=== PATIENT | female | born 1970 | race Caucasian/White ===

== ENCOUNTER 2021-12-28 17:43 | Emergency (ER) | payer OTHER, SELFPAY ==
[2021-12-28 17:52] VITALS: BP 120/83; PULSE 76; RESP 16; TEMP 36.6; O2SAT 100
--- NOTE | 2021-12-28 18:43 | ED.EYEPROB ---
HPI - Eye Problem General Chief complaint: Eye Problems Stated complaint: Eye Problem Time Seen by Provider: 12/28/21 18:43 Source: patient Mode of arrival: ambulatory Limitations: no limitations History of Present Illness HPI Narrative: 51-year-old female presented for complaint of left eye pain after swiping a wash cloth over the eye 2 days ago. She states the pain has worsened over the last 2 days, pain is minimal but states it feels like something is in her eye. She denies vision changes, headache or dizziness. She has a history of the LASEK procedure. chief complaint: eye pain Related Data Home Medications Medication Instructions Recorded Confirmed atomoxetine 60 mg PO DAILY 12/28/21 12/28/21 semaglutide [Ozempic] 1 mg SUBCUT WEEKLY 12/28/21 12/28/21 sertraline 100 mg PO DAILY 12/28/21 12/28/21 Allergies Allergy/AdvReac Type Severity Reaction Status Date / Time phenobarbital Allergy Unknown Hives / Verified 12/28/21 18:29 Red Face Review of Systems Review of Systems: CONSTITUTIONAL: Denies body aches, fever, chills EYES:Endorses redness and pain to left eye, FB sensation Denies visual changes, photophobia ENT: Denies rhinorrhea, congestion, sore throat, or otalgia. CARDIOVASCULAR: Denies chest pain, palpitations RESPIRATORY: Denies cough or dyspnea. GASTROINTESTINAL: Denies abdominal pain, nausea, vomiting, or diarrhea. SKIN: Denies rash, itching, or wounds. MUSCULOSKELETAL: Denies back pain, joint pain, or myalgia. NEUROLOGIC: Denies headache, numbness, tingling, or weakness. PSYCH: Denies depression or anxiety. All systems reviewed & are unremarkable except as noted in HPI and below [facility] Comments At time of signature, I have reviewed and agree with nursing past medical, surgical, social and family history unless otherwise noted. Please see nursing chart for further information. There is no relevant family history pertinent to the presenting complaint Exam Narrative: GENERAL: Well-appearing. HEAD: Normocephalic, atraumatic. EYES: left conjunctival injection,no eye lid swelling or lesions. PERRLA EOMI. Lid eversion showed no FB ENT: Mucous membranes pink and moist. No rhinorrhea. TMs normal bilaterally. Throat normal. Uvula midline. NECK: Normal AROM. Supple. No lymphadenopathy. CHEST: No respiratory distress. Clear to auscultation. HEART: Regular rate and rhythm. No murmur appreciated. Normal peripheral pulses. ABDOMEN: Soft, nontender, nondistended MUSCULOSKELETAL: No bony tenderness. EXTREMITIES: Normal range of motion. SKIN: Warm, dry, no rash. Normal skin turgor. NEURO: No focal deficits. Alert and oriented x3. Steady gait PSYCH: Normal affect. Course Course Emergency Course: Patient is aware of diagnosis, understands and agrees to treatment plan. Anticipatory guidance given. Patient agrees to follow-up as directed and is aware of reasons to seek care at the emergency department. Portions of this record may have been created with voice recognition software Level of Care: Express Care Visit Vital Signs Vital signs: Vital Signs Temperature 97.8 F 12/28/21 17:52 Pulse Rate 76 12/28/21 17:52 Respiratory Rate 16 12/28/21 17:52 Blood Pressure 120/83 12/28/21 17:52 Pulse Oximetry 100 12/28/21 17:52 Temperature 97.8 F 12/28/21 17:52 Pulse Rate 76 12/28/21 17:52 Respiratory Rate 16 12/28/21 17:52 Blood Pressure 120/83 12/28/21 17:52 Pulse Oximetry 100 12/28/21 17:52 Procedures FB Removal Eye Foreign Body #1: Foreign Body Removal Date: 12/28/21 Location: eye (L) Topical anesthetic used: tetracaine Evidence of corneal penetration: No Technique: irrigation Procedure performed under: other (webster) Patient tolerated procedure: well and no complications Foreign Body Removal Narrative: No FB identified, no corneal abrasion noted MDM - Eye Problem MDM Narrative Medical decision nilay
== END 2021-12-28 19:07 | disposition home or self-care (01) ==
PROVIDERS: Emergency Provider Nurse Practitioner Family; PCP Internal Medicine
DX: H10.9 Unspecified conjunctivitis (principal)
CPT/HCPCS: 99213; A9270; G0463

== ENCOUNTER 2022-04-17 17:03 | Emergency (ER) | payer OTHER, SELFPAY ==
[2022-04-17 17:06] VITALS: BP 121/81; PULSE 72; RESP 16; TEMP 36.4; O2SAT 98
--- NOTE | 2022-04-17 17:07 | ED.SKABFB ---
HPI - Skin/Abscess/Foreign Bdy General Chief complaint: Skin/Abscess/Foreign Body Stated complaint: Rash Related Data Home Medications Medication Instructions Recorded Confirmed atomoxetine 60 mg capsule 60 mg PO DAILY 12/28/21 04/17/22 semaglutide 1 mg/dose (4 mg/3 mL) 1 mg subcut WEEKLY 12/28/21 04/17/22 subcutaneous pen injector (Ozempic) sertraline 100 mg tablet 100 mg PO DAILY 12/28/21 04/17/22 cetirizine 10 mg tablet 10 mg PO DAILY 04/17/22 04/17/22 estradiol 0.1 mg/24 hr weekly 1 patch transdermal 2XW 04/17/22 04/17/22 transdermal patch progesterone micronized 100 mg 200 mg PO HS 04/17/22 04/17/22 capsule Allergies Allergy/AdvReac Type Severity Reaction Status Date / Time phenobarbital Allergy Unknown Hives / Verified 04/17/22 17:17 Red Face Discharge Plan Discharge Clinical Impression: Dermatitis Patient Disposition: Home, Self-Care Condition: Stable Instructions: Antibiotic Form, Dermatitis (ED) Additional Instructions: Apply triamcinolone cream as directed moisturize area twice daily using Lubriderm, Cetaphil, or Aquaphor lotion Follow-up with your PCP in 3 to 5 days if symptoms persist or sooner if they worsen May take Benadryl 25 to 50 mg every 6 hours as needed for itching. Prescriptions: New triamcinolone acetonide 0.1 % cream 1 applic topical BID 7 Days Qty: 30 0RF No Action cetirizine 10 mg Tablet 10 mg PO DAILY estradiol 0.1 mg/24 hr Patch Weekly 1 patch TRANSDERMAL 2XW progesterone micronized 100 mg Capsule 200 mg PO HS sertraline 100 mg tablet 100 mg PO DAILY atomoxetine 60 mg capsule 60 mg PO DAILY Ozempic 1 mg/dose (4 mg/3 mL) pen injector 1 mg SUBCUT WEEKLY Follow-up/Referrals: Barbara,MD Cholo [Primary Care Provider] - Time of Disposition: 17:34
[2022-04-17 17:20] VITALS: BP 121/81; PULSE 72; RESP 16; TEMP 36.4; O2SAT 98
--- NOTE | 2022-04-17 18:03 | ED.SKABFB ---
HPI - Skin/Abscess/Foreign Bdy General Chief complaint: Skin/Abscess/Foreign Body Stated complaint: Rash Time Seen by Provider: 04/17/22 17:25 Source: patient Mode of arrival: ambulatory Limitations: no limitations History of Present Illness HPI narrative: Ms. Hagen is a 51-year-old female patient presenting to the clinic today with complaints of rash to her left volar aspect of the elbow. She reports that this rash has been there approximately 3 to 4 days. It is itchy and scaly. She has tried some fungal cream without relief. She is also applied some hydrocortisone cream to this area. Related Data Home Medications Medication Instructions Recorded Confirmed atomoxetine 60 mg capsule 60 mg PO DAILY 12/28/21 04/17/22 semaglutide 1 mg/dose (4 mg/3 mL) 1 mg subcut WEEKLY 12/28/21 04/17/22 subcutaneous pen injector (Ozempic) sertraline 100 mg tablet 100 mg PO DAILY 12/28/21 04/17/22 cetirizine 10 mg tablet 10 mg PO DAILY 04/17/22 04/17/22 estradiol 0.1 mg/24 hr weekly 1 patch transdermal 2XW 04/17/22 04/17/22 transdermal patch progesterone micronized 100 mg 200 mg PO HS 04/17/22 04/17/22 capsule Allergies Allergy/AdvReac Type Severity Reaction Status Date / Time phenobarbital Allergy Unknown Hives / Verified 04/17/22 17:17 Red Face Review of Systems Review of Systems: Pertinent positives per HPI. Patient denies any fever, chills, headache, visual changes, dizziness, cough, runny nose, sore throat, shortness of breath, chest pain, palpitations, nausea, vomiting, diarrhea, constipation, abdominal pain, or any urinary issues. [facility] Comments At the time of my signature, I reviewed and agree with the nursing past medical, surgical, social, and family history. There is no relevant family history pertinent to the patient complaint. Exam Narrative: General: Well-developed, well nourished, in no apparent distress Head: Normocephalic, atraumatic. Cardio: Regular rate and rhythm, s1 and s2 normal, no murmur appreciated. Resp: Clear to auscultation bilaterally, no rhonchi, rales, wheezing or rubs. Integumentary: [place], warm, and dry, intact without lesion,red scaly itchy rash to the flexor surface of the left elbow Course Course Emergency Course: Portions of this record may have been created with voice recognition software. Level of Care: Express Care Visit Vital Signs Vital signs: Vital Signs Temperature 36.4 C 04/17/22 17:06 Pulse Rate 72 04/17/22 17:06 Respiratory Rate 16 04/17/22 17:06 Blood Pressure 121/81 04/17/22 17:06 Pulse Oximetry 98 04/17/22 17:06 Oxygen Delivery Room Air 04/17/22 17:06 Temperature 36.4 C 04/17/22 17:20 Pulse Rate 72 04/17/22 17:20 Respiratory Rate 16 04/17/22 17:20 Blood Pressure 121/81 04/17/22 17:20 Pulse Oximetry 98 04/17/22 17:20 Oxygen Delivery Room Air 04/17/22 17:20 Vital signs reviewed MDM - Skin/Abscess/Foreign Bdy MDM Narrative Medical decision making narrative: At the time of visit patient is resting comfortably on the exam table. I suspect the patient has dermatitis eczema to her left elbow. Supportive measures were discussed with the patient she voiced understanding of discharge instructions. I will place her on a prescription for some triamcinolone cream. Differential Diagnosis Differential diagnosis: Likely cellulitis, eczema and contact dermatitis Discharge Plan Discharge Clinical Impression: Dermatitis Patient Disposition: Home, Self-Care Condition: Stable Instructions: Antibiotic Form, Dermatitis (ED) Additional Instructions: Apply triamcinolone cream as directed moisturize area twice daily using Lubriderm, Cetaphil, or Aquaphor lotion Follow-up with your PCP in 3 to 5 days if symptoms persist or sooner if they worsen May take Benadryl 25 to 50 mg every 6 hours as needed for itching. Prescriptions: New triamcinolone acetonide 0.1 % cream 1 applic topical BID 7 Days Qty
== END 2022-04-17 17:36 | disposition home or self-care (01) ==
PROVIDERS: Emergency Provider Nurse Practitioner Family; PCP Internal Medicine
DX: L30.9 Dermatitis, unspecified (principal); K21.9 Gastro-esophageal reflux disease without esophagitis; F41.9 Anxiety disorder, unspecified; F32.A Depression, unspecified; Z86.16 Personal history of COVID-19
CPT/HCPCS: 99213; G0463

== ENCOUNTER 2022-05-12 18:01 | Emergency (ER) | payer OTHER, SELFPAY ==
[2022-05-12 18:09] VITALS: BP 132/84; PULSE 70; RESP 16; TEMP 37.3; O2SAT 97
--- NOTE | 2022-05-12 19:03 | ED.URI ---
HPI - URI/Sore Throat General Chief Complaint: Upper Respiratory Infection Stated Complaint: cough,sore throat Time Seen by Provider: 05/12/22 19:03 Source: patient, RN notes reviewed and old records reviewed Mode of arrival: ambulatory Limitations: no limitations History of Present Illness HPI Narrative: 51-year-old female [facility] complaints of cough, congestion, sore throat, and ear pain for the past 4 days with symptoms not resolving. Patient reports that she has taken Mucinex, DayQuil, NyQuil and Delsym for her symptoms with no resolution. Patient reports she has not noticed a fever, MD elicited complaint: cough, sore throat, rhinorrhea and nasal congestion Onset (ago): day(s) (4) Pain scale (0-10): 7 Treatments prior to arrival: other (Mucinex Delsym cough syrup DayQuil and NyQuil) Related Data Home Medications Medication Instructions Recorded Confirmed atomoxetine 60 mg capsule 60 mg PO DAILY 12/28/21 05/12/22 sertraline 100 mg tablet 100 mg PO DAILY 12/28/21 05/12/22 pantoprazole 40 mg tablet,delayed 40 mg PO QAM 05/12/22 05/12/22 release (Protonix) tirzepatide 12.5 mg/0.5 mL 12.5 mg subcut WEEKLY 05/12/22 05/12/22 subcutaneous pen injector (Mounjaro) Allergies Allergy/AdvReac Type Severity Reaction Status Date / Time phenobarbital Allergy Unknown Hives / Verified 05/12/22 18:19 Red Face Review of Systems Review of Systems: CONSTITUTIONAL: Denies fever, chills, or sweats. EYES: Denies visual changes, redness, or discharge. ENT: Positive rhinorrhea, congestion, sore throat, or otalgia. CARDIOVASCULAR: Denies chest pain, palpitations, or edema. RESPIRATORY: Positive cough no dyspnea. GASTROINTESTINAL: Denies abdominal pain, nausea, vomiting, or diarrhea. GENITOURINARY: Denies dysuria or hematuria. SKIN: Denies rash or itching. MUSCULOSKELETAL: Denies back pain, joint pain, or myalgia. NEUROLOGIC: Denies headache, numbness, or weakness. PSYCHIATRIC: Positive history of anxiety or depression All systems reviewed & are unremarkable except as noted in HPI and below [facility] Past Medical History Medical History (Updated 05/16/22 @ 20:49 by Dunia Chapa NP) ADHD (attention deficit hyperactivity disorder) Anxiety and depression H/O nephrolithotomy with removal of calculi Surgical History Surgical History (Updated 05/16/22 @ 20:48 by Dunia Chapa NP) H/O tubal ligation History of endometrial ablation Social History Social History (Updated 05/16/22 @ 20:47 by Dunia Chapa NP) Smoking status: Former smoker Additional smoking assessment comments: Quit 2010 Alcohol intake: unknown Substance use type: does not use Living arrangements: with family Gender identity (if verbalized by the patient): Female Comments At time of signature, agree with nursing past medical, surgical, social and family history. There is no relevant family history pertinent to the presenting complaint Exam Narrative: GENERAL: Well-appearing, well-nourished, and in no acute distress. HEAD: Normocephalic, atraumatic. EYES: PERRLA and EOMI. ENT: Nares red with clear rhinorrhea, no epistaxis. Mucous membranes moist.TM normal with dull light reflex, throat with some redness not lesions or exudates or tonsil swelling NECK: Supple. no lymphadenopathy CHEST: Scattered wheezes to auscultation. No respiratory distress.SAO2 97% on room air HEART: Regular rate and rhythm. No murmur heard. Normal peripheral pulses. ABDOMEN: Soft, nontender, nondistended, normal active bowel sounds. EXTREMITIES: Normal range of motion. No edema. SKIN: Warm, dry, no rash. NEURO: No focal deficits. Alert and oriented x3. Course Course Level of Care: Express Care Visit Vital Signs Vital signs: Vital Signs Temperature 37.3 C 05/12/22 18:09 Pulse Rate 70 05/12/22 18:09 Respiratory Rate 16 05/12/22 18:09 Blood Pressure 132/84 05/12/22 18:09 Pulse Oximetry 97 05/12/22 18:09 Oxygen D
== END 2022-05-12 19:20 | disposition home or self-care (01) ==
PROVIDERS: Emergency Provider Registered Nurse; PCP Internal Medicine
DX: J40 Bronchitis, not specified as acute or chronic (principal); J02.9 Acute pharyngitis, unspecified; Z87.891 Personal history of nicotine dependence; F90.9 Attention-deficit hyperactivity disorder, unspecified type; F41.9 Anxiety disorder, unspecified; F32.A Depression, unspecified
CPT/HCPCS: 87081; 87880; 99213; G0463

== ENCOUNTER 2022-08-08 17:12 | Emergency (ER) | payer OTHER, SELFPAY ==
[2022-08-08 17:34] VITALS: BP 106/77; PULSE 73; RESP 18; TEMP 37; O2SAT 99
[2022-08-08 17:35] VITALS: BP 106/77; PULSE 73; RESP 18; TEMP 37; O2SAT 99
--- NOTE | 2022-08-08 18:21 | ED.URI ---
HPI - URI/Sore Throat General Chief Complaint: Upper Respiratory Infection Stated Complaint: Congestion/Headache Time Seen by Provider: 08/08/22 18:21 Source: patient and RN notes reviewed Mode of arrival: ambulatory Limitations: no limitations History of Present Illness HPI Narrative: 51-year-old female presenting for complaint of sinus pressure, congestion, and cough with a hoarse voice over the last 3 days. She took a negative COVID test at home 2 days ago. She denies shortness of breath, wheezing, nausea vomiting, diarrhea, fever chills. She is taking [id number] Mucinex for symptoms. MD elicited complaint: cough Related Data Home Medications Medication Instructions Recorded Confirmed atomoxetine 60 mg capsule 60 mg PO DAILY 12/28/21 08/08/22 sertraline 100 mg tablet 100 mg PO DAILY 12/28/21 08/08/22 pantoprazole 40 mg tablet,delayed 40 mg PO QAM 05/12/22 08/08/22 release (Protonix) tirzepatide 12.5 mg/0.5 mL 12.5 mg subcut WEEKLY 05/12/22 08/08/22 subcutaneous pen injector (Mounjaro) Allergies Allergy/AdvReac Type Severity Reaction Status Date / Time phenobarbital Allergy Unknown Hives / Verified 08/08/22 17:33 Red Face Review of Systems Review of Systems: ROS per HPI [facility] Past Medical History Medical History ADHD (attention deficit hyperactivity disorder) Anxiety and depression H/O nephrolithotomy with removal of calculi Surgical History Surgical History H/O tubal ligation History of endometrial ablation Social History Social History Smoking status: Former smoker Additional smoking assessment comments: Quit 2011 Alcohol intake: unknown Substance use type: does not use Gender identity (if verbalized by the patient): Female Exam Narrative: GENERAL: well-appearing EYES: PERRLA, conjunctivae clear ENT: Mucous membranes moist. TMs pearly fernandez with dull light reflex bilaterally; no tragal tenderness. Oropharynx erythematous without lesions or exudate NECK: Supple. No lymphadenopathy CHEST: Clear to auscultation, breath sounds equal. No wheezing, rhonchi, rales, or stridor. No respiratory distress, speaks in full sentences. HEART: Regular rate and rhythm. No murmur heard. SKIN: Warm, dry, no rash. NEURO: Alert and oriented x3. PSYCH: Normal mood and affect Course Course Emergency Course: Patient is aware of diagnosis, understands and agrees to treatment plan. Anticipatory guidance given. Patient agrees to follow-up as directed and is aware of reasons to seek care at the emergency department. Portions of this record may have been created with voice recognition software Level of Care: Express Care Visit Vital Signs Vital signs: Vital Signs Temperature 98.6 F 08/08/22 17:34 Pulse Rate 73 08/08/22 17:34 Respiratory Rate 18 08/08/22 17:34 Blood Pressure 106/77 08/08/22 17:34 Pulse Oximetry 99 08/08/22 17:34 Oxygen Delivery Room Air 08/08/22 17:34 Temperature 98.6 F 08/08/22 17:35 Pulse Rate 73 08/08/22 17:35 Respiratory Rate 18 08/08/22 17:35 Blood Pressure 106/77 08/08/22 17:35 Pulse Oximetry 99 08/08/22 17:35 Oxygen Delivery Room Air 08/08/22 17:35 reviewed MDM - URI/Sore Throat MDM Narrative Medical decision making narrative: Advised supportive measures and signs/symptoms to go to the ER. Pt is appropriate for outpt treatment and f/u. Differential Diagnosis Differential diagnosis: Likely upper respiratory infection, sinusitis and viral infection Discharge Plan Discharge Clinical Impression: Upper respiratory infection Patient Disposition: Home, Self-Care Condition: Stable Instructions: Upper Respiratory Infection (ED) Additional Instructions: Recommend Flonase spray and Zyrtec (or Claritin/Svitlana) Tylenol or Motrin flores
== END 2022-08-08 18:34 | disposition home or self-care (01) ==
PROVIDERS: Emergency Provider Nurse Practitioner Family; PCP Internal Medicine
DX: J06.9 Acute upper respiratory infection, unspecified (principal); F41.9 Anxiety disorder, unspecified; F32.A Depression, unspecified; F90.9 Attention-deficit hyperactivity disorder, unspecified type; Z87.891 Personal history of nicotine dependence
CPT/HCPCS: 99211; G0463

== ENCOUNTER 2022-11-20 15:32 | Emergency (ER) | payer OTHER, SELFPAY ==
[2022-11-20 15:47] VITALS: BP 140/75; PULSE 82; RESP 16; TEMP 36.6; O2SAT 99
--- NOTE | 2022-11-20 16:52 | ED.GENADULT ---
HPI - General Adult General Chief complaint: Upper Respiratory Infection Stated complaint: Sinus Congestion/Headache Source: patient Mode of arrival: ambulatory Limitations: no limitations History of Present Illness HPI narrative: Patient presents for evaluation of sinus symptoms for last 11 days. Symptoms include sinus congestion, mucopurulent discharge from the nares, otalgia, difficulty breathing and subjective fever. She developed a cough today. She works for [employer] and they recently went to an optional mask policy. She is not aware of any recent specific sick contacts. No nausea, vomiting or diarrhea. She tried taking several OTC agents for her symptoms. Some have provided temporary relief. She does not smoke. She has been sleeping with head of bed elevated to assist with her breathing. Related Data Home Medications Medication Instructions Recorded Confirmed atomoxetine 60 mg capsule 60 mg PO DAILY 12/28/21 11/20/22 sertraline 100 mg tablet 100 mg PO DAILY 12/28/21 11/20/22 pantoprazole 40 mg tablet,delayed 40 mg PO QAM 05/12/22 11/20/22 release (Protonix) tirzepatide 12.5 mg/0.5 mL 12.5 mg subcut WEEKLY 05/12/22 11/20/22 subcutaneous pen injector (Mounjaro) Allergies Allergy/AdvReac Type Severity Reaction Status Date / Time phenobarbital Allergy Unknown Hives / Verified 11/20/22 15:51 Red Face Review of Systems Review of Systems: CONSTITUTIONAL: Denies fever, chills, or sweats. EYES: Denies visual changes, redness, or discharge. ENT: Reports sinus congestion, mucopurulent discharge from nares and bilateral otalgia. Denies sore throat CARDIOVASCULAR: Denies chest pain, palpitations, or edema. RESPIRATORY: Reports productive cough. Denies SOB GASTROINTESTINAL: Denies abdominal pain, nausea, vomiting, or diarrhea. GENITOURINARY: Denies dysuria or hematuria. SKIN: Denies rash or itching. MUSCULOSKELETAL: Denies back pain, joint pain, or myalgia. NEUROLOGIC: Denies headache, numbness, dizziness, or weakness. PSYCHIATRIC: Denies anxiety or depression. [facility] Past Medical History Medical History ADHD (attention deficit hyperactivity disorder) Anxiety and depression H/O nephrolithotomy with removal of calculi Surgical History Surgical History H/O tubal ligation History of endometrial ablation Family History Family History Mother Family history non-contributory Social History Social History Smoking status: Former smoker Additional smoking assessment comments: Quit 2010 Alcohol intake: unknown Substance use type: does not use Living arrangements: with family Gender identity (if verbalized by the patient): Female Exam Narrative: GENERAL: Well-appearing, well-nourished, and in no acute distress. HEAD: Normocephalic, atraumatic. EYES: PERRLA and EOMI. ENT: There is thick yellow drainage in bilateral nares. Mucous membranes moist. Bilateral maxillary and frontal sinus tenderness. Bilateral TMs pearly fernandez nonbulging NECK: Supple. No adenopathy or masses. No carotid bruits or JVD CHEST: Clear to auscultation. No respiratory distress. No wheezes rales or rhonchi HEART: Regular rate and rhythm. No murmur heard. Normal peripheral pulses. ABDOMEN: Soft, nontender, nondistended, normal active bowel sounds. EXTREMITIES: Normal range of motion. No edema. SKIN: Warm, dry, no rash. NEURO: No focal deficits. Alert and oriented x3. PSYCH: Normal mood and affect. Course Course Emergency Course: This is a 51-year-old female who presented for evaluation of sinus symptoms refractory to multiple medications. She meets criteria for ABRS based on duration of time in which she has been symptomatic and quality of her discharge. Will treat with Augmenti
== END 2022-11-20 16:56 | disposition home or self-care (01) ==
PROVIDERS: Emergency Provider Nurse Practitioner; PCP Internal Medicine
DX: J32.9 Chronic sinusitis, unspecified (principal); Z87.891 Personal history of nicotine dependence
CPT/HCPCS: 99213; G0463

== ENCOUNTER 2024-03-12 13:43 | Emergency (ER) | payer OTHER, SELFPAY ==
[2024-03-12 13:52] VITALS: BP 153/83; PULSE 73; RESP 16; TEMP 36.5; O2SAT 100
--- NOTE | 2024-03-12 14:02 | ED.URI ---
HPI - URI/Sore Throat General Chief Complaint: Upper Respiratory Infection Stated Complaint: nose/ears/diarrhea History of Present Illness HPI Narrative: patient is a 53-year-old female, past medical history significant for asthma, ADHD anxiety presents to [facility] with approximate 24 hour history of URI symptoms, including clear rhinorrhea, burning in the nasal passages, scratchy itchy throat and a slight cough. She denies associated fevers or chills. 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 She is taking wimv-jou-awpmeiv cold medications without much relief prompting her visit. She has no associated chest pain and shortness of breath, orthopnea, calf pain or swelling, nausea vomiting or urinary symptoms. She does report loose stool today. She denies recent travel, she is not . Related Data Home Medications Medication Instructions Recorded Confirmed atomoxetine 60 mg capsule 60 mg PO DAILY 12/28/21 11/20/22 sertraline 100 mg tablet 100 mg PO DAILY 12/28/21 11/20/22 pantoprazole 40 mg tablet,delayed 40 mg PO QAM 05/12/22 11/20/22 release (Protonix) Protonix 03/12/24 semaglutide 2 mg/dose (8 mg/3 mL) mg subcut 03/12/24 subcutaneous pen injector (Ozempic) Allergies Allergy/AdvReac Type Severity Reaction Status Date / Time phenobarbital Allergy Unknown Hives / Verified 11/20/22 15:51 Red Face Review of Systems ENT: Comments: Refer to HPI Respiratory: Comments: refer to HPI [facility] Past Medical History Medical History ADHD (attention deficit hyperactivity disorder) Anxiety and depression H/O nephrolithotomy with removal of calculi Surgical History Surgical History H/O tubal ligation History of endometrial ablation Family History Family History Mother Family history non-contributory Social History Social History Smoking status: Former smoker Additional smoking assessment comments: Quit 2010 Alcohol intake: unknown Substance use type: does not use Living arrangements: with family Gender identity (if verbalized by the patient): Female Exam Const: General: healthy appearing, no acute distress and alert Nutritional Appearance: obese Orientation/consciousness: patient oriented x3 Limitations: no limitations HENMT: Head: normal to inspection Ears: external ears normal and TM abnormal retracted bilateral and other ( serous pattern bilaterally, no perforation, no erythema) Eyes: Conjunctivae: conjunctivae normal Pupils: Equal, round and reactive pupils present EOM: EOMs intact bilaterally Neck: Neck: normal visual inspection, no lymphadenopathy and no meningeal signs Resp: Effort & Inspection: normal respiratory effort Auscultation: clear to auscultation bilaterally Cardio: Rate: regular rate Rhythm: regular rhythm GI: GI Palp: Yes Soft to palpation, No Tenderness to palpation present (GI), No Guarding due to palpation present (GI), No Rigid due to palpation, No Hernia present, No Palpable mass present and No Rebound tenderness present Skin: General skin exam: normal color Rashes: no rashes Wounds: no wounds Neuro: General: patient oriented x3, moves all extremities, no meningeal signs, no focal motor deficits and CN's II-XI intact bilaterally Cranial nerves: Yes Nystagmus not present Speech: normal speech Gait exam (Neuro): Normal gait present Extrem: General: normal to inspection and no clubbing, cyanosis or edema Course Course Emergency Course: plan to treat with short steroid course, cough suppressant, continued miea-aep-pzyeivn antihistamines as directed. Close follow-up with her PCP in 3-5 days if her symptoms are not starting to improve. Sooner if she develops high fever or with any concer
== END 2024-03-12 14:11 | disposition home or self-care (01) ==
PROVIDERS: Emergency Provider Nurse Practitioner Family; PCP Internal Medicine
DX: J06.9 Acute upper respiratory infection, unspecified (principal); Z87.891 Personal history of nicotine dependence; F90.9 Attention-deficit hyperactivity disorder, unspecified type; F41.9 Anxiety disorder, unspecified; F32.A Depression, unspecified
CPT/HCPCS: 99213; G0463

== ENCOUNTER 2025-03-29 17:05 | Emergency (ER) | payer OTHER, SELFPAY ==
--- NOTE | 2025-03-29 17:07 | ED_ITS ---
HPI - Ear Problem General Chief complaint: Ear Stated complaint: ear pain Time Seen by Provider: 03/29/25 17:18 Source: patient and RN notes reviewed Mode of arrival: ambulatory Limitations: no limitations History of Present Illness HPI Narrative: 54-year-old female presents concern for left ear pain for 4 days. She reports over the summer she had the ear infection that was resistant to antibiotics, she followed up with an ENT by that point the ear infection was healed. She has not had any problems until now. She denies fever, upper respiratory symptoms. She denies drainage from the ear MD Complaint: ear pain Related Data Home Medications ?Medication ?Instructions ?Recorded ?Confirmed ?Last Taken ?Type sertraline 100 mg tablet 100 mg PO DAILY 12/28/21 11/20/22 Unknown History pantoprazole 40 mg tablet,delayed 40 mg PO QAM 05/12/22 11/20/22 Unknown History release (Protonix) Protonix 03/12/24 Unknown History estradiol 0.1 mg/24 hr semiweekly 03/29/25 Unknown History transdermal patch lisdexamfetamine 40 mg capsule mg 03/29/25 Unknown History tirzepatide 15 mg/0.5 mL mg subcut 03/29/25 Unknown History subcutaneous pen injector (Mounjaro) Allergies Allergy/AdvReac Type Severity Reaction Status Date / Time Milk Containing Products Allergy Unknown Unknown Verified 03/29/25 17:20 (Dairy) phenobarbital Allergy Unknown Hives / Verified 03/29/25 17:19 Red Face Review of Systems Review of Systems: CONSTITUTIONAL: Denies malaise, chills, sweats, or fever. EYES: Denies visual changes, redness, or discharge. ENT: Denies rhinorrhea, congestion, sinus pain, and sore throat. Reports left ear pain CARDIOVASCULAR: Denies chest pain, palpitations, or edema. RESPIRATORY: Denies cough. Denies dyspnea. GASTROINTESTINAL: Denies abdominal pain, nausea, vomiting, diarrhea SKIN: Denies rash or itching. MUSCULOSKELETAL: Denies myalgia. NEUROLOGIC: Denies headache. All systems reviewed & are unremarkable except as noted in HPI and below PMFSH Past Medical History Medical History ADHD (attention deficit hyperactivity disorder) Anxiety and depression H/O nephrolithotomy with removal of calculi Surgical History Surgical History H/O tubal ligation History of endometrial ablation Family History Family History Mother Family history non-contributory Social History Social History Smoking status: Former smoker Additional smoking assessment comments: Quit 2010 Alcohol intake: unknown Substance use type: does not use Living arrangements: with family Gender identity (if verbalized by the patient): Female Comments At time of signature, agree with nursing past medical, surgical, social and family history. There is no relevant family history pertinent to the presenting complaint Exam Narrative: GENERAL: Well-appearing, well-nourished, and in no acute distress. HEAD: Normocephalic EYES: PERRLA, conjunctivae clear ENT: Nares clear, turbinates edematous, clear discharge. Mucous membranes moist. TM pearly fernandez with dull light reflex bilaterally; no tragal tenderness, EAC unremarkable. No post or pre-auricular erythema, induration, or warmth noted. Oropharynx not erythematous without lesions. Tonsils not enlarged and without exudate, no drooling, no hoarseness, no trismus, uvula midline. NECK: Supple. No lymphadenopathy CHEST: Clear to auscultation, breath sounds equal. No wheezing, rhonchi, rales, or stridor. No respiratory distress, speaks in full sentences. HEART: Regular rate and rhythm. No murmur heard. SKIN: Warm, dry, no rash. NEURO: Alert and oriented x3. PSYCH: Normal mood and affect Course Course Emergency Course: Patient is aware of diagnosis, understands and agrees to treatment plan. Anticipatory guidance given. Patient agrees to follow-up as directed and is aware of reasons to seek care at the emergency department. Portions of this record may have been created with voice recognition software Level of Care: Express Care Visit Vital Signs Vital signs: Reviewed. Medical Decision Making MDM Narrative Medical decision making narrative: I evaluated this in the [facility]. History is obtained from patient who is an independent historian and physical exam was performed.? Available medical records were reviewed. ? Exam findings and relevant testing show no acute concerns or changes; patient is non-toxic appearing and is in no distress. Differential diagnosis considered: Duran virus, strep pharyngitis, allergic rhinitis, upper respiratory tract infection, sinusitis, rhinosinusitis, nasopharyngitis. viral pharyngitis, otitis media, otitis externa, otitis effusion, pre/post auricular cellulitis, mastoiditis, cerumen impaction, foreign body. Exam findings show no acute concerns or changes; patient is non-toxic appearing and is in no distress. Patient is appropriate for outpatient treatment and follow-up. ? Differential diagnosis and treatment plan were discussed with the patient. Patient agrees with discussion and after shared medical decision making agrees with plan of care. All questions were answered to the patient's satisfaction. Patient is appropriate for outpatient treatment and follow-up. Critical Care Time Critical Care Time Critical Care Time: No Discharge Plan Discharge Clinical Impression: Ear ache Patient Disposition: Home Condition: Stable Instructions: Earache (ED) Additional Instructions: Take pseudoephedrine as directed. Recommend antihistamine such as Benadryl at night time and Zyrtec or Svitlana during the day until symptoms improve Flonase nasal spray, 2 sprays in each nostril once daily until symptoms improve Also, recommend symptomatic treatment includes: rest, fluids, and increase humidity of the air at home. Recommend Acetaminophen as directed on the bottle to reduce fever, pain Please schedule a follow-up visit with your personal physician for further evaluation and treatment within 3-5days. If your symptoms persist, change or worsen significantly before you can contact your personal physician then please, without delay, go to the emergency department for further evaluation. Patient Language: French Prescriptions: New pseudoephedrine HCl [12 Hour Decongestant] 120 mg tablet extended release 120 mg PO Q12H PRN (Reason: nasal congestion) Qty: 20 0RF No Action pantoprazole [Protonix] 40 mg Tablet,Delayed Release (Dr/Ec) 40 mg PO QAM Protonix estradiol 0.1 mg/24 hr patch semiweekly lisdexamfetamine 40 mg capsule Mounjaro 15 mg/0.5 mL pen injector SUBCUT sertraline 100 mg tablet 100 mg PO DAILY Follow-up/Referrals: Araceli,Kwaku Tobar MD [Primary Care Provider] - Time of Disposition: 17:27
--- OUTSIDE RECORDS SUMMARY | 2025-03-29 17:07 | XMS_ITS | Encounter Summary ---
Author Organization [facility] Address [address] [facility] [address] [place] [address] Phone Care Team Providers Care Buyer Grain Name Role Phone Cholo Jimenez MD Primary Care Provider [phone] Neno Corea MD Unavailable [phone] Foster Kwan MD Unavailable [phone] Remberto Ovalles MD Unavailable [phone] Kwaku Charles MD Primary Care Provi daija Kwaku Charles MD Primary Care Provi daija Cholo Jimenez MD Primary Care Provider [phone] Kwaku Charles MD Primary Care Provi daija Encounter Details Date Type Department Care Team (Late st Contact Info) Description 10/19/2017 Orders Only [facility] ProviderVinny MD [address] [place] [address] Social History Tobacco Use Types Packs/Day Years Used Date Smoking Tobacco: Former Cigarettes Q uit: 12/08/2010 Smokeless Tobacco: Former Alcohol Use Standard Drinks/Week Comments No 0 (1 standard drink = 0.6 oz pur e alcohol) Comments Unknown Sex and Gender Information Value Date Recorded Sex Assigned at Not on file Legal Sex Female 7:17 PM [employer] Gender Identity Female 10/30/2023 2:03 AM [employer] Sexual Orientation Straight 08/03/2019 2: 20 PM [employer] documented as of this encounter Plan of Treatment Not on file documented as of this encounter Procedures Procedure Name Priority Date/Time Associated Diagnosis Comments DISCHARGE LABORATORY CUMULATIVE REPORT 10/19/2017 12:00 AM [employer] documented in this encounter Results * DISCHARGE LABORATORY CUMULATIVE REPORT (10/19/2017 12:00 AM [employer]) Narrative 10/19/2017 12:00 AM [employer] Ordered by an unspecified provider. Historical Provider LAB BLOOD ORDERABLES Natasha l Result documented in this encounter Visit Diagnoses Not on filedocumented in this encounter Additional Health Concerns Infection Onset Date Last Indicated Resolved Time COVID: Suspected 06/12/2020 06/12/2020 06/13/2020 2:51 PM CDT Respiratory Infection (JONATHON), contact + droplet Comment:Automatically added due to negative COVID-19 result. 06/13/2020 06/13/2020 06/20/2020 1:3 3 PM CDT COVID: Suspected 08/04/2020 08/04/2020 08/18/2020 3:07 AM [employer] COVID19 08/04/2020 09/01/2020 09/01/2020 8:56 AM [employer] COVID: Recovered 08/15/2020 09/01/2020 2020 3:05 AM CDT COVID: Suspected 11/14/2020 11/14/2020 11/14/2020 10:25 AM CDT COVID: Suspected 02/03/2021 02/03/2021 02/03/2021 9:27 PM CDT COVID: Suspected 06/30/2021 06/30/2021 07/01/2021 6:09 AM CDT COVID: Suspected 09/04/2021 09/04/2021 09/05/2021 10:05 AM [employer] documented as of this encounter Care Teams Buyer Grain Relationship Specialty Start Date End Date Cholo Jimenez MD PCP - General Internal Medicine 10/04/17 07/19/24 Kwaku Charles MD [address] [place] [address] PCP - General Family Practice 07/20/24 09/01/24 Kwaku Charles MD [address] [place] [address] PCP - General Family Practice 09/02/24 09/08/24 Cholo Jimenez MD [address] [facility] [address], [place] [address] PCP - General Internal Medicine 09/09/24 10/19/24 Kwaku Charles MD [address] [facility] [address] [place] [address] PCP - General Family Practice 10/20/24 Neno Corea MD Consulting Physician Gastroenterology 06/17/22 Foster Kwan MD Consulting Physician Interventional Cardiology 06/17/22 [place] [address] [place] [address] Surgeon General Surgery 06/19/22 documented as of this encounter
--- OUTSIDE RECORDS SUMMARY | 2025-03-29 17:07 | XMS_ITS | Clinical Summary ---
Author Organization [facility] Address [address] [place] [address] Phone Care Team Providers Care Pick Up Name Role Phone Provider, None Primary Care Provider Unavailabl e Allergies Active Allergy Reactions Criticality Noted Date Comments Phenobarbital Hives,Rash Medium 05/12/2016 Reaction: Hives, , Medications Ascorbic Acid 1000 MG Tablet Take 1,000 mg by mouth. Active Cholecalciferol 25 mcg Capsule Take 1,000 Units by mouth. Active estradiol (VIVELLE) 0.05 MG/24HR PATCH BIWEEKLY 9 Active pantoprazole (PROTONIX) 40 MG Tablet Delayed Response TAKE ONE TABLET BY MOUTH TWICE A DAY 0 Active phenazopyridine (PYRIDIUM) 100 MG Tablet Take 100 mg by mouth. 0 Active progesterone (PROMETRIUM) 100 MG Capsule Take 100 mg by mouth. 9 Active Semaglutide, 1 MG/DOSE, 2 MG/1.5ML Solution Pen-injector 1 mg by Subcutaneous route. 0 Active sertraline (ZOLOFT) 50 MG Tablet TAKE ONE TABLET BY MOUTH EVERY DAY 0 Active Active Problems No known active problems Social History Tobacco Use Types Packs/Day Years Used Date Smoking Tobacco: Former Cigarettes Smokeless Tobacco: Never Comments No Sex and Gender Information Value Date Recorded Sex Assigned at Not on file Legal Sex Female 8:56 PM CDT Gender Identity Not on file Sexual Orientation Not on file Last Filed Vital Signs Vital Sign Reading Time Taken Comments Blood Pressure 98/78 08/04/2020 3:27 PM PHYSICAL THERAPY ASSISTANT INSTRUCTOR Pulse 78 08/04/2020 3:27 PM PHYSICAL THERAPY ASSISTANT INSTRUCTOR Temperature 37.2 C (98.9 F) 08/04/2020 3:27 PM PHYSICAL THERAPY ASSISTANT INSTRUCTOR Respiratory Rate - - Oxygen Saturation 98% 08/04/2020 3:27 PM PHYSICAL THERAPY ASSISTANT INSTRUCTOR Inhaled Oxygen Concentration - - Weight - - Height - - Body Mass Index - - Plan of Treatment Health Maintenance Due Date Last Done Comments Hepatitis C Virus (HCV) Screening 1970 TdaP Immunization 1970 Hepatitis B Immunization (1 of 3 - 19+ 3-dose series) 12/12/1990 Pap Smear 12/12/1992 Cervical Cancer Screening (CCS) 12/12/2001 HPV/Cotest 12/12/2001 Cologuard 12/12/2016 Colonoscopy 12/12/2016 Colorectal Cancer Screening 12/12/2016 Immunochemical Fecal Occult Blood 12/12/2016 Pneumococcal Immunization (5 0+ years) (1 of 1 - PCV) 12/12/2021 Zoster Immunization (1 of 2) 12/12/2021 SARS-COV-2 Immunization (4 - season) 2024 08/18/2021, 09/19/2020, 08/22/2020 Influenza Immunization (#1) 04/26/202505/27, 06/13/2016 Respiratory Syncytial Virus (RSV) Immunization (Adult) (1 - 1-dose 75+ series) 12/12/2046 Human Papillomavirus (HPV) Immunization Aged Out No longer eligible b ased on patient's age to complete this topic Meningococcal Immunization (ACWY) Aged Out No longer eligible b ased on patient's age to complete this topic Rotavirus Immunization Aged Out No lo nger eligible based on patient's age to complete this topic Care Teams Pick Up Relationship Specialty Start Date End Date Provider, None [place] PCP - General 08/04/20
--- OUTSIDE RECORDS SUMMARY | 2025-03-29 17:08 | XMS_ITS | Clinical Summary ---
Author Organization [facility] Address [address] [place] [address] Care Team Providers Care Loan Servicing Officer Name Role Phone Neno Corea MD Unavailable Foster Kwan MD Unavailable [phone] Remberto Ovalles MD Unavailable Kwaku Charles MD Primary Care Provi daija Allergies Active Allergy Reactions Criticality Noted Date Comments Dairy - All Forms And Ingredients Other (See comments) Low 07/05/2020 EOE, esophagitis Phenobarbital Hives Medium Tree Nuts Shortness of breath High 07/05/2020 Medications progesterone (PROMETRIUM) 100 mg capsule Take 1 capsule (100 mg total) by mouth nightly 9 Active fluticasone furoate-vilante roL (BREO ELLIPTA) 100-25 mcg/dose diskus inhaler Inhale 1 puff daily Rinse mouth with water after use. Do not swallow. 60 each 2 Active cholecalciferol (VITAMIN D-3) 1,000 unit capsule Take 1 capsule (1,000 Units total) by mouth daily 90 capsule 3 Active ascorbic acid (VITAMIN C) 1,000 mg tablet Take 1 tablet (1,000 mg total) by mouth daily 90 tablet 3 Active Nurtec ODT tablet,disinteg rating Take 1 tablet (75 mg total) by mouth daily as needed (headache) 16 tablet 5 4 Active albuterol-budes onide 90-80 mcg/actuation HFA aerosol inhaler Inhale 2 puffs every 6 (six) hours as needed (cough, wheezing and shortness of breath) 10.7 g 11 4 Active rimegepant (NURTEC ODT) tablet,disinteg rating Take 1 tablet (75 mg total) by mouth daily as needed (Take 1 tablet by mouth daily as needed (headache)) 16 tablet [address] (PROTONIX) 40 mg EC tablet Take 1 tablet (40 mg total) by mouth daily as needed (heartburn) 5 Active sertraline (ZOLOFT) 100 mg tablet Take 0.5 tablets (50 mg total) by mouth daily 45 tablet 1 5 05/21/20 25 Active fluticasone propionate (FLONASE) 50 mcg/actuation nasal sprayIndication s:Acute serous otitis media of left ear, recurrence not specified Administer 2 sprays into each nostril daily 1 each 5 Active estradioL (VIVELLE-DOT) 0.1 mg/[address] 1 patch on the skin 2 (two) times a week 24 patch 3 5 02/02/20 26 Active cetirizine (ZyrTEC) 10 mg tablet Take 1 tablet (10 mg total) by mouth daily 90 tablet 5 Active lisdexamfetamin e (VYVANSE) 40 mg capsule Take 1 capsule (40 mg total) by mouth every morning 30 capsule 5 04/09/20 25 Active tirzepatide (Mounjaro) 15 mg/0.5 mL pen injector injectionIndica tions:Class 2 obesity without serious comorbidity with body mass index (BMI) of 39.0 to 39.9 in adult, unspecified obesity type,Prediabete s Inject 0.5 mL (15 mg total) under the skin every 7 days 2 mL 5 5 09/06/19 26 Active tirzepatide (Mounjaro) 15 mg/0.5 mL pen injector injection Inject 0.5 mL (15 mg total) under the skin every 7 days 2 mL 5 5 03/10/20 25 Discontin ued(Reord er) lisdexamfetamin e (VYVANSE) 40 mg capsule Take 1 capsule (40 mg total) by mouth every morning 30 capsule 5 03/10/20 25 Discontin ued(Reord er) Active Problems Problem Noted Date Diagnosed Date Acute mucoid otitis media of left ear 12/24/2024 Assessment & Plan (12/24/2024 8:32 AM CDT): Dysfunction of both eustachian tubes 12/24/2024 Assessment & Plan (12/24/2024 8:32 AM CDT): Vertigo 12/24/2024 Assessment & Plan (12/24/2024 8:32 AM CDT): Screening for colon cancer 10/02/2024 Routine adult health maintenance 07/20/2024 Prediabetes 07/20/2024 Class 2 obesity with body ma ss index (BMI) of 39.0 to 39.9 in adult 07/20/2024 Mild persistent asthma without complication 06/27 Perimenopause 07/20/2024 Migraine 06/15/2021 Assessment & Plan (08/09/2022 4:14 PM PRECISION JIG GRINDER): [facility] Assessment & Plan (08/12/2021 9:58 PM PRECISION JIG GRINDER): Trial of Imitrex. Stress reduction techniques recommended. Call back if no improvement. Right renal stone 06/22/2020 Overview (06/22/2020): Added automatically from request for surgery [id number] IFG (impaired fasting glucose) 10/06/2018 Assessment & Plan (04/02/2024 5:28 PM CDT): Patient should reduce sugar and carbs, increase exercise, maintain proper body weight, and will check an A1c once or twice yearly. Assessment & Plan (12/06/2023 4:21 PM CDT): Patient should reduce sugar and carbs, increase exercise, maintain proper body weight, and will check an A1c once or twice yearly. Assessment & Plan (02/22/2023 3:30 PM CDT): Patient should reduce sugar and carbs, increase exercise, maintain proper body weight, and will check an A1c once or twice yearly. Assessment & Plan (01/06/2022 9:28 PM CDT): Patient should reduce sugar and carbs, increase exercise, maintain proper body weight, and will check an A1c once or twice yearly. Assessment & Plan (11/14/2020 9:28 PM CDT): Patient should reduce sugar and carbs, increase exercise, maintain proper body weight, and will check an A1c once or twice yearly. Assessment & Plan (10/13/2019 5:12 PM PRECISION JIG GRINDER): Patient should reduce sugar and carbs, increase exercise, maintain proper body weight, and will check an A1c once or twice yearly. Continue Ozempic through her classroom technology coach. Assessment & Plan (02/16/2019 7:24 PM CDT): Patient should reduce sugar and carbs, increase exercise, maintain proper body weight, and will check an A1c once or twice yearly. Assessment & Plan (10/06/2018 5:03 PM PRECISION JIG GRINDER): Patient should reduce sugar and carbs, increase exercise, maintain proper body weight, and will check an A1c once or twice yearly. Adult ADHD 08/06/2018 Assessment & Plan (12/06/2023 4:21 PM CDT): Continue Strattera Assessment & Plan (02/22/2023 3:30 PM CDT): Stable on Strattera. Assessment & Plan (08/09/2022 4:14 PM PRECISION JIG GRINDER): Stable on Strattera Assessment & Plan (01/06/2022 9:28 PM CDT): Stable on Strattera. Assessment & Plan (11/14/2020 9:29 PM CDT): Stable on Strattera for now. Assessment & Plan (10/13/2019 5:12 PM PRECISION JIG GRINDER): Well controlled on her Strattera. Assessment & Plan (09/07/2019 10:38 AM PRECISION JIG GRINDER): Increasing Strattera to 16 mg capsules daily. S/Es medication discussed. F/U here for next wellness visit as scheduled re-evaluation. Assessment & Plan (02/16/2019 7:25 PM CDT): Stable on Strattera. Assessment & Plan (10/06/2018 5:02 PM PRECISION JIG GRINDER): Well controlled on Strattera. Assessment & Plan (09/02/2018 1:36 PM PRECISION JIG GRINDER): Improved medication. Continue current dosing of Strattera as previously prescribed, follow-up in 1 month as scheduled Assessment & Plan (08/06/2018 10:28 AM PRECISION JIG GRINDER): Based upon self report scale indicating presence of ADHD on a daily basis, recommending Strattera starting with lower medium dose once daily. Side effects discussed encourage patient take this medication the morning will touch base here in 2 weeks for re-evaluation Anxiety and depression 06/11/2018 Assessment & Plan (04/02/2024 5:28 PM CDT): Increase sertraline to 150 mg daily. Consider adding BuSpar next. Recommended counseling, increase exercise, yoga, meditation. Assessment & Plan (12/06/2023 4:21 PM CDT): Stable on sertraline. Assessment & Plan (02/22/2023 3:30 PM CDT): Stable on sertraline. Assessment & Plan (01/06/2022 9:28 PM CDT): Better controlled on sertraline 100 mg daily. Assessment & Plan (08/12/2021 9:58 PM PRECISION JIG GRINDER): Increase sertraline to 100 mg daily. Counseling and increase exercise recommended. Call back if no improvement. Assessment & Plan (11/14/2020 9:28 PM CDT): Stable on sertraline. Assessment & Plan (10/13/2019 5:12 PM PRECISION JIG GRINDER): Well controlled on sertraline and may wean down if able. Assessment & Plan (09/07/2019 10:38 AM PRECISION JIG GRINDER): Stable on current dosing of Zoloft and BuSpar. Cnt. Medications prior prescribed. Report increased anxiety office if noted with increased Strattera dosing. Assessment & Plan (04/30/2019 9:55 AM CDT): After long discussion with Pt she decides to Cnt. With current dose of Zoloft 50 mg daily, p.r.n. zoloft 0.5 mg daily, and reach out to her HR department to discuss possible intermittent FMLA leave. I did offer her other conservative treatment options for anxiety, such as exercise, meditation, imaging after friends. Further detail in regard to FMLA leave once reaching out to HR. RTC prn or sooner with concerning sx as advised. Assessment & Plan (02/16/2019 7:25 PM CDT): Better controlled on her sertraline. Counseling recommended as well. Assessment & Plan (10/06/2018 5:02 PM PRECISION JIG GRINDER): Hold buspirone. Start sertraline. Discussed side effects and call back if any develop. Call back if no improvement in 1 month for increasing dose. Assessment & Plan (09/02/2018 1:36 PM PRECISION JIG GRINDER): Controlled well considering medication changes with Strattera. She notes less anxiety due to improved concentration. Continue use of BuSpar on a p.r.n. Basis and follow-up with any concern regarding anxiety or depression Assessment & Plan (08/06/2018 10:22 AM PRECISION JIG GRINDER): Tapering off of patient's Lexapro taking half a tablet daily for the next week, half a tablet every other day for the following week and then stopping. Will re- evaluate patient here in office in 2 weeks considering her concerns regarding possible ADHD symptoms conflicting with diagnosis of anxiety. Use of BuSpar, sparingly, was advised but again if it is not anxiety the BuSpar is likely to be assisting in her acute concerns Assessment & Plan (06/11/2018 1:03 PM CDT): Tapering off of Effexor, trial of Lexapro is refer release the work for patient to take as prescribed as instructions were sent over to pharmacy upon prescribing. Side effects discussed. BuSpar p.r.n.. Follow-up in a month and certainly in the interim with any additional questions or concerns. She did make an appointment to follow up with counseling at the hospital in a week I did encourage her to keep this appointment as well. We will touch base in 4 weeks or sooner as needed Obstructive sleep apnea 04/23/2018 Assessment & Plan (04/02/2024 5:28 PM CDT): Patient is compliant with the CPAP machine and gets symptomatic relief. Assessment & Plan (02/22/2023 3:30 PM CDT): Patient is compliant with the CPAP machine and gets symptomatic relief. Assessment & Plan (01/06/2022 9:28 PM CDT): Patient is compliant with the CPAP machine and gets symptomatic relief. Assessment & Plan (11/14/2020 9:28 PM CDT): Patient is compliant with the CPAP machine and gets symptomatic relief. Assessment & Plan (02/17/2019 7:36 PM CDT): She was diagnosed with mild obstructive sleep apnea in October 2017 and currently she is on CPAP therapy. She states that she is compliant with treatment however CPAP compliance/efficiency data is not available for review. Assessment & Plan (10/24/2018 10:06 AM PRECISION JIG GRINDER): She was diagnosed with mild obstructive sleep apnea in October 2017 and currently she is on CPAP therapy. She states that she is compliant with treatment however CPAP compliance/efficiency data is not available for review. Assessment & Plan (04/23/2018 5:00 PM CDT): She was diagnosed with obstructive sleep apnea in October 2017. Currently she is on CPAP therapy. According to the patient she is compliant to treatment and symptoms are well controlled. Thoracic back sprain 01/03/2018 Assessment & Plan (01/03/2018 10:09 AM CDT): With conservative management failed, recommended Medrol dose pack with a 40 mg Depo-Medrol injection given in office today, tizanidine q.h.s., heat stretching were strongly advised along with Voltaren gel which I advised her she can apply twice daily to the specific area of pain. Just to ensure that there is no concern of any dislocated ribs or anything of that nature I did order a rib x-ray and will follow up with her regarding results of testing any for changes in our management Healthcare maintenance 10/04/2017 Assessment & Plan (04/02/2024 5:27 PM CDT): Flu and COVID boosters in the fall. Prevnar 20 completed. Tetanus booster due April 2029. Get 2nd Shingrix dose. Mammogram yearly. Colonoscopy due March 2025. Will see her back in 1 year with fasting lab sooner if needed. Assessment & Plan (12/06/2023 4:20 PM CDT): Check fasting labs before wellness visit in February. Assessment & Plan (02/22/2023 3:31 PM CDT): Fasting labs this week call back for results. Flu shot each May, Shingrix today, new COVID booster when available. Tetanus booster every years. Mammogram due. Colonoscopy due in 2 years. Follow-up the jordan worker as they direct. Will see her back in 1 year for wellness visit fasting lab sooner needed. Assessment & Plan (01/06/2022 9:30 PM CDT): Flu shot each May. Tetanus booster every 10 years. COVID vaccine completed. Mammogram yearly. Follow-up the jordan worker for breast exam and pelvic exam as they direct. Colonoscopy due and ordered. Will see her back in 1 year for physical fasting lab sooner if needed Assessment & Plan (11/14/2020 9:29 PM CDT): Flu shot each May. Tetanus booster every 10 years. COVID vaccine completed. Mammogram yearly. Follow-up the jordan worker for breast exam and pelvic exam as they direct. We will see her back in 1 year for physical and fasting lab sooner if needed. Assessment & Plan (10/13/2019 5:13 PM PRECISION JIG GRINDER): Flu shot each May. Tetanus booster every 10 years. Mammogram yearly. Follow- up with the jordan worker for breast exam and pelvic exam as they direct. Will see her back in 1 year for physical and fasting lab sooner if needed. Assessment & Plan (10/06/2018 5:03 PM PRECISION JIG GRINDER): Flu shot each May. Tetanus booster every 10 years. FIT for colon cancer screening call back for results. Mammogram yearly. Follow-up the jordan worker for breast exam and pelvic exam is a direct. We will see her back in 3 months for follow-up of her multiple medical conditions or sooner if needed. Assessment & Plan (01/12/2018 3:52 PM CDT): Flu shot each May. Tetanus booster every 10 years. Colonoscopy age 51. Mammogram yearly. Follow-up the jordan worker for breast exam and pelvic exam is a direct. We will see her back in 1 year for physical and fasting lab sooner if needed. Will also check fasting labs now should call back for results. Vitamin D deficiency 10/04/2017 Assessment & Plan (04/02/2024 5:27 PM CDT): Continue supplementation check levels yearly. Assessment & Plan (12/06/2023 4:21 PM CDT): Continue supplementation check level before next visit. Assessment & Plan (02/22/2023 3:30 PM CDT): Continue supplementation check level this week back for results. Assessment & Plan (01/06/2022 9:27 PM CDT): Continue current supplementation and check level in 1 year. Assessment & Plan (11/14/2020 9:28 PM CDT): Continue current supplementation and check level in 1 year. Assessment & Plan (10/13/2019 5:11 PM PRECISION JIG GRINDER): Continue current supplementation and check level in 1 year. Assessment & Plan (02/16/2019 7:23 PM CDT): Continue current supplementation and check level in 1 year. Assessment & Plan (10/06/2018 5:02 PM PRECISION JIG GRINDER): Reduce vitamin-D to 1000 units daily and check level in 1 year. Assessment & Plan (01/12/2018 3:49 PM CDT): Continue current supplementation and check level in 1 year. Nocturnal hypoxemia 10/04/2017 Assessment & Plan (01/12/2018 3:49 PM CDT): Check split night sleep study for possibly of sleep apnea considering her excessive daytime fatigue. Gastroesophageal reflux disease 05/24/2016 Assessment & Plan (04/02/2024 5:27 PM CDT): Well controlled on pantoprazole. Assessment & Plan (06/26/2022 2:51 PM CDT): Symptoms well controlled with Protonix daily. Assessment & Plan (11/14/2020 9:28 PM CDT): Well controlled on pantoprazole Assessment & Plan (10/13/2019 5:12 PM PRECISION JIG GRINDER): Try decreasing her PPI to every other day and then discontinue if able. Assessment & Plan (02/16/2019 7:24 PM CDT): Continue current PPI and the patient is aware of the long-term risks posed by chronic PPI usage. Magnesium level will be checked periodically. Calcium supplementation recommended. Assessment & Plan (10/06/2018 5:02 PM PRECISION JIG GRINDER): Continue current PPI and the patient is aware of the long-term risks posed by chronic PPI usage. Magnesium level will be checked periodically. Calcium supplementation recommended. Pure hypercholesterolemia 05/24/2016 Assessment & Plan (04/02/2024 5:28 PM CDT): Low risk for ASCVD and therefore recommend diet exercise. Assessment & Plan (12/06/2023 4:21 PM CDT): Diet exercise discussed and repeat lipid panel before next visit. Assessment & Plan (02/22/2023 3:30 PM CDT): Fasting lipid panel this week back for results. Assessment & Plan (01/06/2022 9:27 PM CDT): Low risk for ASCVD and therefore recommend diet exercise. Assessment & Plan (11/14/2020 9:28 PM CDT): Low risk for ASCVD and therefore recommend diet exercise. Assessment & Plan (10/13/2019 5:11 PM PRECISION JIG GRINDER): Low risk for ASCVD and therefore recommend diet exercise. Osteoarthritis of knee 02/01/2016 Overview (11/30/2016): OA - Osteoarthritis of knee Atopic rhinitis 04/08/2015 Overview (11/30/2016): Allergic rhinitis Assessment & Plan (04/02/2024 5:28 PM CDT): Astelin /Zyrtec as needed. Assessment & Plan (10/13/2019 5:12 PM PRECISION JIG GRINDER): Okay to try holding her Astelin and Zyrtec and restart as needed. Assessment & Plan (10/06/2018 5:01 PM PRECISION JIG GRINDER): Add Astelin nasal spray to her fluticasone and montelukast Assessment & Plan (03/14/2018 2:12 PM CDT): She is on case of allergic rhinitis. She complains of chronic postnasal drip and nasal congestion. She was started on fluticasone nasal spray. Assessment & Plan (01/12/2018 3:48 PM CDT): Continue generic Singulair. 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 Discussed side effects call back if develop. Hypertriglyceridemia 07/10/2022 024 Chest pain 06/15/2022 07/20/2024 Assessment & Plan (08/09/2022 4:15 PM PRECISION JIG GRINDER): Scheduled for stress test and echocardiogram with her cook helper preserves Chest pain, unspecified type 06/14/2022 04/02/2024 Elevated LFTs 06/14/2022 07/20/2024 Overview (06/18/2022): Added automatically from request for surgery [id number] Cholelithiasis with choledocholithiasis 06/14/2022 04/02/2024 Overview (06/18/2022): Added automatically from request for surgery [id number] Assessment & Plan (08/09/2022 4:15 PM PRECISION JIG GRINDER): She has done very well following surgery. Repeat hepatic function panel trending towards normal. Has already followed up with GI and surgery without issues. Repeat hepatic function panel September 2022 and call back if symptoms return. Assessment & Plan (06/26/2022 2:51 PM CDT): S/P ERCP on 06/18/2022 and lap andrew on 06/20/2022. Abdominal pain is slowly improving. Tolerating diet without nausea or vomiting. No fevers. Will order CBC and HFP. She has FU with surgery on 07/12. Mild intermittent asthma wit h acute exacerbation 05/23/2022 04/02/2024 Assessment & Plan (05/23/2022 4:43 PM CDT): HPI: Condition is not at/near goal A&P: Discussed/ordered labs, encouraged healthy, low carbohydrate lifestyle and at least 150min/week of exercise, refer to Dr. Underwood pulmonology breo levaquin 500mg daily x 10 days, no leftovers Recommend daily probiotic to help prevent GI side effects Promethazine syrup at bedtime Tesdanika lester during the day Prediabetes 11/06/2021 04/02/2024 Assessment & Plan (05/23/2022 4:49 PM CDT): A1c ordered today-5.6% great control PCV20 given today Pt had diabetic eye exam at [facility]. We will call to obtain. Assessment & Plan (11/06/2021 5:12 PM CDT): This is a chronic condition which is stable, controlled, at goal. Personally reviewed A1c today- 5.5, at goal less than 7% Personally reviewed blood sugar-118 at goal 80-180 Medication- Continue ozempic 1mg weekly- with symptoms. Discussed decreasing to o.5mg weekly, discussed bariatric surgery- referral made. Monitor blood sugar weekly Encouraged annual eye exam. Monofilament foot exam completed, protective senses intact. Urine microalbumin/creatinine ratio - <30 mg/g currently not on SATINDER/ARB , at goal <30 Personally reviewed labs: BUN- 9, creatinine- 0.70 GFR- 106 Kidney function- normal B/P today- 118/66, currently not on SATINDER/ARB. At Goal blood pressure is <140/90 and as close to 120/80 as possible. Personally reviewed LDL - 90, currently not on statin therapy. at Goal of less than 70 No history of macrovascular disease - CVA, [place]. Vomiting without nausea 02/03/20212 12/2023 Renal calculus, right 07/09/20202023 Overview (07/09/2020): Added automatically from request for surgery [id number] Right flank pain 06/22/2020 04/02/2024 Overview (06/22/2020): Added automatically from request for surgery [id number] Viral gastroenteritis 01/22/20202020 Assessment & Plan (01/22/2020 1:52 PM CDT): Push plenty of fluids. Zofran for nausea. Imodium for diarrhea. Alcorn diet. If she develops high fever or severe abdominal pain or cannot keep fluids down over the weekend consider ER evaluation. Non-seasonal allergic rhinitis due to pollen 9 04/02/2024 Assessment & Plan (02/17/2019 7:35 PM CDT): Symptoms well controlled. We will continue with combination of cetirizine and fluticasone nasal spray. Mild persistent asthma without complication 11/16/2018 11/01/2020 Assessment & Plan (11/16/2018 1:16 PM CDT): We will continue with combination of Breo Ellipta 100 mcg 1 puff once a day and Spiriva Respimat 1.25 mcg 2 puffs once a day. Her inhaler technique was reviewed and correct technique was clearly explained and demonstrated. Class 2 severe obesity due t o excess calories with serious comorbidity and body mass index (BMI) of 37.0 to 37.9 in adult 10/06/2018 Assessment & Plan (05/23/2022 4:46 PM CDT): HPI: Condition is not at/near goal goal BMI <30 A&P: Healthy, high-protein, lower carbohydrate, lower fat lifestyle and exercise for 150min/week recommended Recommend tracking everything you put in your mouth on an yudi like [employer] Lower carb substitutions: [employer] carries a zero net carb bread If you are looking for whole potatoes, like to use in soup or new potato shape/flavor, radishes are a great replacement If you are looking for mashed potatoes, riced cauliflower in the frozen bag section are a great replacement For pasta, try using zucchini noodles, lay them out on a cookie sheet and pat dry with a tea towel to try to remove as much moisture as possible. Heat your pasta sauce on the stove and put the noodles in for 30-45 seconds. If you leave them in much longer they will become mushy [place] and/or coconut flour instead of regular flour For pizza dough, try fathead pizza dough recipe online. To get a crispy crust, bake on one side for 8-12 min, then flip over and bake on the other side for 8-12 min, then put toppings on and bake until the cheese on top of pizza melts chaffles recipe online For ice cream, try the brand Enlightened To replace coffee creamer and make it low carb, use heavy creamer with sugar free [place]ani sweetener For chips, try Whisps or pork rinds For yogurt, try Two Good maltese yogurt Use [employer] for recipe ideas. Type in low carb... Hand Measurements: A fist or cupped hand = 1 cup 1 cup = 1 -2 servings of fruit juice 1 oz. of cold cereal 2 oz. of cooked cereal, rice or pasta 8 oz. of milk or yogurt A thumb = 1 oz. of cheese Consuming low-fat cheese helps you meet the required servings from the milk, yogurt and cheese group. 1 oz. of low-fat cheese counts as 8 oz. of milk or yogurt. Handful = 1-2 oz. of snack food Thumb tip = 1 teaspoon Keep high-fat foods, such as peanut butter and mayonnaise, at a minimum. One teaspoon is equal to the end of your thumb, from the knuckle up. Three teaspoons equals 1 tablespoon. Palm = 3 oz. of meat Choose lean poultry, fish, shellfish and beef. One palm size portion equals 3 oz. for an adult and 1 -2 oz. for a child under 5. 1 tennis ball or a fist= 1/2 cup of fruit and vegetables Healthy diets include a variety of colorful fruits and vegetables every day. The secret to serving size is in your hand. Snacking can add up. Remember, 1 handful equals 1 oz. of nuts and small candies. For chips and pretzels, 2 handfuls equals 1 oz. Because hand sizes vary, compare your fist size to an actual measuring cup. Assessment & Plan (01/04/2022 9:26 AM CDT): Given their past success the patient would be a good candidate for weight loss surgery. We have gone over options such as the bypass and sleeve gastrectomy. We have also discussed risks and benefits such as blood clots, staple line leak as well as new or worsening reflux symptoms. We specifically further address the reflux and giving some consideration to a bypass so that things do not worsen for her. They are in understanding. During this time will have them seen by the dietitian and psych. As we get closer to the time of surgery we will set him up for an EGD to look for hiatal hernia, H pylori or other gastric pathology. We will see them back in 4 weeks. They are in understanding of the plan. We have gone over small frequent meals shooting for a goal calorie intake of around 1600 spread throughout 4-5 meals. We have discussed not eating late at night. We have discussed cardiovascular exercise. Greater than 15 minutes was spent in counseling the patient on diet and exercise with regards to her morbid obesity. Assessment & Plan (10/06/2018 5:03 PM PRECISION JIG GRINDER): Patient is encouraged to lose weight with a combination of caloric reduction and increased exercise. Various strategies discussed. The long-term risks associated with continued morbid obesity discussed. Acute bronchitis due to othe r specified organisms 08/06/2018 09/02/2018 Assessment & Plan (09/02/2018 1:25 PM PRECISION JIG GRINDER): Asymptomatic at this time. Patient was encouraged to f/u with as indicated Assessment & Plan (08/06/2018 10:21 AM PRECISION JIG GRINDER): Tapering corticosteroids, use of Z-Familia, certainly ProAir use 3 to 4 times a day for the next few days and p.r.n. Thereafter. He has a humidifier, vaporizer, and current management for small airway disease including uses Spiriva, Singulair, Flonase nasal spray and will follow up in office regarding condition in 2 weeks Bronchitis 06/11/2018 04/02/2024 Assessment & Plan (05/23/2022 4:44 PM CDT): HPI: Condition is not at/near goal A&P: Discussed/ordered labs, encouraged healthy, low carbohydrate lifestyle and at least 150min/week of exercise, refer to Dr. Underwood pulmonology breo levaquin 500mg daily x 10 days, no leftovers Recommend daily probiotic to help prevent GI side effects Promethazine syrup at bedtime Kj lester during the day Assessment & Plan (06/11/2018 1:04 PM CDT): To takes azithromycin as prescribed, tapering corticosteroids, use of ProAir every 4-6 hours p.r.n., Mucinex increase fluids were encouraged. I also advised patient use a humidifier vaporizer would also assist with chest tightness/congestion. Will follow up with her in regard to condition in a week if there is any worsening or no improvement symptoms Morbid obesity 04/23/2018 10/06/2018 Assessment & Plan (04/23/2018 4:57 PM CDT): Weight management counseling through diet modification was provided for 10 min. Small airways disease 04/23/20182020 Assessment & Plan (02/17/2019 7:38 PM CDT): Pulmonary function testing on March 31, 2018 revealed: 1. Normal spirometry, 2. FEV1 has shown no response to bronchodilator or; however FEF 25% has shown 10% improvement in response to bronchodilator, suggestive of mild small airway disease. Pulmonary function testing on March 31, 2018 was suspicious for small airway disease. However test results may not be accurate as the patient states that she is not sure whether she discontinued long-acting inhaled bronchodilators prior to the test or not. The patient advised to continue with Breo Ellipta 100 mcg 1 puff once a day and Spiriva Respimat 2 puffs once a day. Follow-up PFT has not done yet. Assessment & Plan (02/16/2019 7:24 PM CDT): Use albuterol p.r.n. And repeat pulmonary function testing and follow up with Dr Quach as he directs. Assessment & Plan (11/16/2018 1:19 PM CDT): Pulmonary function testing on March 31, 2018 was suspicious for small airway disease. However test results may not be accurate as the patient states that she is not sure whether she discontinued long-acting inhaled bronchodilators prior to the test or not. Pulmonary function testing on March 31, 2018 revealed: 1. Normal spirometry, 2. FEV1 has shown no response to bronchodilator or; however FEF 25% has shown 10% improvement in response to bronchodilator, suggestive of mild small airway disease. The patient advised to continue with Breo Ellipta 100 mcg 1 puff once a day. She was also started on Spiriva Respimat 1.25 mcg 2 puff once a day. Her inhaler technique was reviewed and correct technique was clearly explained and demonstrated. We will repeat PFT. Assessment & Plan (10/06/2018 5:02 PM PRECISION JIG GRINDER): Continue Spiriva and follow up with Dr. Quach as he directs. Assessment & Plan (08/06/2018 10:21 AM PRECISION JIG GRINDER): Small airway disease including uses Spiriva, Singulair, Flonase nasal spray and will follow up in office regarding condition in 2 weeks Assessment & Plan (06/11/2018 1:03 PM CDT): Continue with current use of Spiriva and ProAir p.r.n.. Assessment & Plan (04/23/2018 4:57 PM CDT): Pulmonary function testing on March 27, 2018 has shown: 1. Normal spirometry, 2. FEV1 has shown no response to bronchodilator or; however FEF 25% has shown 10% improvement in response to bronchodilator or suggestive of mild small airway disease 3. Normal lung volumes. 4. Normal diffusion capacity 5. Normal airway resistance. She was advised to discontinue Breo Ellipta and she was started on Spiriva Respimat 1.25 mcg 2 puffs once a day. She was also advised to continue with albuterol inhaler 2 puffs as needed. Non-seasonal allergic rhinitis 04/23/2018 04/02/2024 Assessment & Plan (11/16/2018 1:11 PM CDT): Symptoms well controlled. We will continue with combination of azelastine and fluticasone nasal spray. Assessment & Plan (04/23/2018 4:58 PM CDT): She has a history of chronic postnasal drip. She was advised to continue with fluticasone nasal spray. Sinobronchitis 04/23/2018 10/06/2018 Assessment & Plan (09/02/2018 1:35 PM PRECISION JIG GRINDER): Continue with current management as advised by vulcan crewmember including use of Singulair, Flonase, Spiriva, ProAir use p.r.n.. Follow up Dr. Quach in 1 month as scheduled Assessment & Plan (04/23/2018 5:05 PM CDT): She complains of postnasal drainage and cough with color mucus production. Clinical presentation is consistent with sign of bronchitis. She was started on a course of Augmentin 875 mg twice a day for 8 days. Morbid (severe) obesity due to excess calories 01/12/2018 10/06/2018 Assessment & Plan (01/12/2018 3:49 PM CDT): Patient is encouraged to lose weight with a combination of caloric reduction and increased exercise. Various strategies discussed. The long-term risks associated with continued morbid obesity discussed. Gastroesophageal reflux dise ase without esophagitis 10/04/2017 10/06/2018 Assessment & Plan (03/14/2018 2:14 PM CDT): She has a chronic acid reflux disease. She was advised to continue with PPI 6. Symptoms are well controlled. Assessment & Plan (01/12/2018 3:48 PM CDT): Continue current PPI and the patient is aware of the long-term risks posed by chronic PPI usage. Magnesium level will be checked periodically. Calcium supplementation recommended. BMI 40.0-44.9, adult 06/28/2017 025 Assessment & Plan (02/17/2019 7:39 PM CDT): Stable BMI. No significant weight loss over the past 6 months. Assessment & Plan (11/16/2018 1:08 PM CDT): Weight management counseling was provided for 10 min. Lifestyle change and diet modification were discussed with the patient in detail. Assessment & Plan (08/06/2018 10:20 AM PRECISION JIG GRINDER): Recommended patient to continue to increase heart healthy diet with adequate fruits, vegetables, and plenty of water along with mild-moderate daily exercise as tolerated. Assessment & Plan (06/11/2018 1:03 PM CDT): Recommended patient to continue to increase heart healthy diet with adequate fruits, vegetables, and plenty of water along with mild-moderate daily exercise as tolerated. Assessment & Plan (03/14/2018 2:15 PM CDT): She is morbidly obese. BMI is more than 40. Weight management through lifestyle modifications and diet was discussed for 10 min. Weight management through bariatric surgery was also discussed with the patient. Assessment & Plan (01/12/2018 3:50 PM CDT): See below Assessment & Plan (06/28/2017 11:28 AM CDT): Recommended patient to continue to increase heart healthy diet with adequate fruits, vegetables, and plenty of water along with mild-moderate daily exercise as tolerated. Hypersomnia 06/28/2017 11/01/2020 Assessment & Plan (06/28/2017 11:46 AM CDT): Certainly will move forward or any oximetry testing in order to further evaluate cause of hypersomnia, frequent nocturnal awakenings, and early breastfeeding care specialist headaches as seems suggestive of sleep apnea at this time. Forms filled out and faxed over along with office note to complete testing is indicated at this time. Patient was strongly advised there is anything we can do in the interim to let us know will follow up with her regarding results of testing and need for sleep study. Frequent nocturnal awakening 06/28/2017 04/02/2024 Morning headache 06/28/2017 04/02/2024 Assessment & Plan (06/28/2017 11:46 AM CDT): shoe folder headaches are likely due to sleep apnea based upon clinical assessment subjective data. Moving forward for testing for sleep apnea as indicated Morbid obesity 05/24/2016 01/12/2018 Anaclitic depression 05/24/2016 019 Asthma 02/01/2016 06/11/2018 Overview (11/30/2016): Asthma Assessment & Plan (03/14/2018 2:13 PM CDT): She was diagnosed with asthma back in 2010 however she has never had a PFT. Currently she is on ProAir 2 puffs as needed. PFT was arranged. Her inhaler technique was reviewed and correct technique was clearly explained and demonstrated. She was also advised to avoid known allergens including pets (dogs and cats close). She was advised to continue with ProAir 2 puffs as needed. Assessment & Plan (01/12/2018 3:48 PM CDT): Breo and wean to off if able. Use albuterol as needed. Assessment & Plan (07/12/2017 3:21 PM PRECISION JIG GRINDER): Stable. Continue on Breo along with use of ProAir p.r.n.. Certainly will await for the results of the nocturnal study in order for further management if indicated and need for oxygenation use at night and/or CPAP device Recurrent major depressive disorder 02/01/2016 06/11/2018 Overview (10/04/2017): Assessment & Plan (01/12/2018 3:48 PM CDT): Stable on venlafaxine. Adiposity 04/08/2015 10/04/2017 Overview (11/30/2016): Obesity Encounters Date Type Department Care Team Description 02/05/2025 Telephone [facility] Gastroenterology at [address] [place] [address] Lionel Armando MA 01/28/2025 Results Follow-Up [facility] Gastroenterology at [address] [place] [address] Morro Vivar MD Surgical pathology 01/11/2025 11:40 AM CDT Anesthesia Event [address] [address] Mei Wilson MD 01/11/2025 11:30 AM CDT - 01/11/2025 12:00 PM CDT Surgery [address] [address] Morro Vivar MD COLON BIOPSY 01/11/2025 10:19 AM CDT - 01/11/2025 12:45 PM CDT Hospital Encounter [address] [address] Morro Vivar MD Screening for colon cancer Discharge Disposition: Discharge to home or self care from Last 3 Months Immunizations Immunization Administration Dates Next Due Influenza, Quadrivalent, Spl it, Preservative Free, Intradermal 06/15/2016,06/13/2016 Influenza, Quadrivalent, Spl it, Preservative Free, Intramuscular 07/09/2023,06/21/2017,05/26/2015 Influenza, Trivalent, Preser vative Free, Intramuscular 06/11/2024 Influenza, Trivalent, Recomb inant, Egg Free, Preservative Free, Antibiotic Free, IM (FLUBLOK) 07/06/2014 Influenza, Unspecified 06/11/2024,2022,06/09/2021,06/09,06/05/2019,04/30/2019(Deferred: Patient Refused - not available) Moderna SARS-CoV-2 Monovalen t Vaccination (12+ YRS) 09/19/2020,08/22/2020 Pfizer SARS-CoV-2 Monovalent Vaccination (12+ Yrs) PURPLE 08/18/2021,08/18/2021 Pneumococcal Conjugate Pcv20 05/23/2022 TD Preservative Free 07/06/2014 Tdap 05/15/2019 ZOSTER Recombinant 02/22/2023 Surgical History Surgery Date Site/Laterality Comments LOOP ELECTROSURGICAL EXCISIO N PROCEDURE 08/26/1998 - 08/25/1999 LEEP TUBAL LIGATION 08/26/1995 - 08/25/1996 ENDOMETRIAL ABLATION W/ NOVASURE 08/26/2011 - 08/25/2012 URETEROLITHOTOMY 08/26/2020 - 09/25/2020 LASIK 03/14/2018 COLONOSCOPY 03/26/2022 CHOLECYSTECTOMY 06/19/2022 Medical History Medical History Date Comments Anemia Anemia Depression Depression Body mass index 40.0-44.9, adult (HCC) GERD (gastroesophageal reflux disease) Asthma Kidney calculi Prediabetes Vascular headache URI (upper respiratory infection) Sleep apnea resolved with we ight loss Petit mal Last seizure at 7 y/o Anxiety 1997 Arthritis osteo arthritis Osteoporosis Chronic bronchitis (HCC) 2007 Family History Medical History Relation Name Comments Clotting disorder Brother 3 Magdiel Diabetes Brother 3 Magdiel Diabetes mellit us; Other Brother 4 Alive and well; Hypertension Brother 5 Hypertension; Depression Brother 6 Depression; Depression Brother 7 Magdiel Diabetes Brother 7 Magdiel Hypertension Brother 7 Magdiel Vision loss Brother 7 Magdiel Asthma Father Crow COPD Father Crow Hypertension Father Crow Hypertension; Rashes / Skin problems Father Crow Heart disease Father's Brother Uncle Pierce Hypertension Father's Sister Aunt Linette Heart attack Maternal Grandfather Grandpa Sherin Heart disease Maternal Grandfather Grandpa Sherin Hypertension Maternal Grandfather Grandpa Duff Arthritis Maternal Grandmother Grandma Duff Breast cancer Maternal Grandmother Grandma Sherin Hypertension Maternal Grandmother Grandma Sherin Miscarriages / Stillbirths Maternal Grandmother m binu Duff Anemia Mother [place] Breast cancer Mother [place] Depression Mother [place] Depression; Diabetes Mother [place] Diabetes mellit us; Heart failure Mother Inna Hypertension Mother Inna Hypertension; Other Mother Inna cholecystectomy ; Diabetes Mother's Brother 1 Uncle Kolton Hypertension Mother's Brother 1 Uncle Kolton Diabetes Mother's Brother 2 Uncle Beto Cancer Mother's Sister Aunt Magdalena Heart attack Paternal Grandfather Grandpa Kathryn Heart disease Paternal Grandfather Grandpa [place] Hypertension Paternal Grandfather Grandpa [place] Stroke Paternal Grandfather Grandpa [place] Kidney disease Paternal Grandmother Grandma [place] Anemia Sister Beatrice Vision loss Son Karthikeyan Ovarian cancer Neg Hx Thyroid cancer Neg Hx Relation Name Status Comments Brother 1 Alive Brother 2 Alive Brother 3 Magdiel Brother 4 Brother 5 Brother 6 Brother 7 Magdiel Father Crow (Age 57) Father's Brother Uncle Pierce Father's Sister Aunt Linette Maternal Grandfather Grandpa Duff Maternal Grandmother Grandma Duff Mother Inna Alive Mother's Brother 1 Uncle Koltno Mother's Brother 2 Uncle Beto Mother's Sister Aunt Magdalena Paternal Grandfather Grandpa [place] Paternal Grandmother Grandma [place] Sister Beatrice Son Karthikeyan Social History Tobacco Use Types Packs/Day Years Used Date Smoking Tobacco: Former Cigarettes 0.5 20 0 12/08/1990 - 12/08/2010 Smokeless Tobacco: Former Tobacco Cessation:Counseling Given: Not Answered Alcohol Use Standard Drinks/Week Comments No 0 (1 standard drink = 0.6 oz pur e alcohol) AUDIT-C Answer Date Recorded Q1: How often do you have a drink containing alc ohol? Never 10/02/2024 Average Number of Drinks Not on file 025 Frequency of Binge Drinking Not on file 02/2025 PHQ-2 Answer Date Recorded PHQ-2 Total Score (If total score is 3 or more points, staff should administer the PHQ-9) 0 07/20/2024 Personal Safety Answer Date Recorded Have you ever been in or are you currently in a harmful physical or emotional relationship or is someone making you feel afraid or unsafe? 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 Not on file Not on f ile Obstetrics History Para Term AB IAB SAB Ectopic Multiple Livin g Live Births 3 3 3 3 3 Date Outcome GA Total Labor Labor/2nd/3rd Weight Sex Type Anes PTL Whitney A1 A5 Name Clin 07/28 Term 40w 0d 3.941 kg (8 lb 11 oz) F Vaginal Living Complications:None 05/19 Term 40w 0d 4.366 kg (9 lb 10 oz) M Vaginal Living Complications:None 05/17 Term 40w 0d 3.459 kg (7 lb 10 oz) F Vaginal Living Complications:None Last Filed Vital Signs Vital Sign Reading Time Taken Comments Blood Pressure 95/52 01/11/2025 12:35 PM CDT Pulse 59 01/11/2025 12:35 PM CDT Temperature 36.8 C (98.3 F) 01/11/2025 12:35 PM CDT Respiratory Rate 16 01/11/2025 12:35 PM CDT Oxygen Saturation 100% 01/11/2025 12:35 PM CDT Inhaled Oxygen Concentration - - Weight 98.4 kg (217 lb) 01/11/2025 10:34 AM CDT Height 157.5 cm (5' 2) 01/11/2025 10:34 AM CDT Body Mass Index 39.69 01/11/2025 10:34 AM CDT Plan of Treatment Health Maintenance Due Date Last Done Comments Hepatitis B Screening 12/12/1989 Cervical Cancer Screening 11/23/2022 11/23/2021, Zoster Vaccine (2 of 2) 04/19/2023 02/22/2023 Covid-19 Vaccine (5 - 2023-2 5 season) 2024 08/18/2021, 08/18/2021, 09/19/2020, Additional history exists Breast Cancer Screening-Mammogram 04/15/2025 04/15/2024, 04/20/2023, 02/22/2022, Additional history exists Influenza Vaccine (#1) 2025 , 06/11/2024, 07/09/2023, Additional history exists Depression Screening 07/20/2025 07/20/2024, 04/02/2024, 02/22/2023, Additional history exists Regular Well Visit/Exam 18-64 07/20/2025, 04/02/2024, 04/19/2023, Additional history exists Colon Cancer Screening-Colonoscopy 01/12/20282024, 03/26/2022 DTaP/Tdap/Td Vaccine (2 - Td or Tdap) 05/15/2029 05/15/2019, 07/06/2014 Pneumococcal vaccine <65 Completed 05/23/2022 Hepatitis C Screening Completed 06/15/2022 Medical Devices Explanted Type Area Cafe Cook Device Identifier Shelf Expiration Date Model / Serial / Lot [employer] [id number] [employer] 6fr 24cm Pusher Fluoro Marker Atraumatic Insertion Latex Free - [id number] Implanted:Qty: 1 on 07/08/2020 by Preston Holley DO at [facility] Explanted:Qty: 1 on 09/02/2020 by Preston Holley DO at [facility] Right: [employer] 01/15/2024 [id number] / / [id number] [employer] [id number] [employer] 6fr 24cm Pusher Fluoro Marker Atraumatic Insertion Latex Free - [id number] Implanted:Qty: 1 on 09/02/2020 by Preston Holley DO at [facility] Explanted:Qty: 1 on 09/06/2020 by Referral, Self Right: [employer] [id number] 01/15/2024 [id number] / / [id number] Procedures Procedure Name Priority Date/Time Associated Diagnosis Comments COLON BIOPSY 01/11/2025 11:34 AM CDT Screening for colon cancer SURGICAL PATHOLOGY STAT 01/11/2025 11 :31 AM CDT Screening for colon cancer COLONOSCOPY 01/11/2025 10:34 AM CDT SCREENING MAMMOGRAM BILATERAL W GREG Schedule Routine, Read Routine (OP Routine) 04/15/2024 1:27 PM CDT Screening mammogram, encounter for HEPATITIS PANEL, ACUTE STAT 06/15/2022 9:52 AM CDT PAP WITH REFLEX TO HIGH RISK HPV Routine 11/23/2021 11:33 AM CDT from Last 3 Months or Most Recently Relevant to Health Maintenance Results * Surgical pathology (01/11/2025 11:31 AM CDT) Tissue (Polyp(s), colon/colorectal, esophageal, gastric) 01/11/2025 11:57 AM CDT Narrative PATHOLOGY [facility] - 01/13/2025 10:21 AM CDT EPIC results best viewed via link to PDF [facility] Department of Pathology [address] [place], [place] [id number] Note to Patients: This report may contain a detailed description of human tissue sent by a health care provider to the laboratory for pathologic evaluation. The content of this report is essential for diagnosis and may provide important critical findings. This information may be unfamiliar to patients to review without a medical professional present. It is advised that the patient review this report in the presence of a health care provider who can answer questions and explain the details. Final Report Patient Name: MAURI BROWNING Address: [address] [place] [address] Gender: F : 1970 (Age: 54) Service: Gastro Location: [facility] Hospital #: [id number] Patient Type: [facility] Taken: 01/11/2025 Received: 01/12/2025 Accessioned: 01/12/2025 Reported: 01/13/2025 Physician(s):Dr. Morro Vivar M.D. Diagnosis: Descending colon polyp x2, biopsy: - Tubular adenoma x2. - Negative for high-grade dysplasia. Neno Cui M.D. Report Electronically Reviewed and Signed Out By Neno Cui M.D. 01/13/2025 10:21:42 Specimen(s) Received: A: Descending colon polyp x 2 Microscopic Description: Sections show a tubular adenoma x2. There is no evidence of high-grade dysplasia or invasive carcinoma. Clinical History: Screening for colon cancer. Gross Description: The specimen is submitted in a single formalin filled container labeled MAURI EWIN and descending colon polyp x2. It is 3 fragments of lema tissue between 2 and 4 mm. All in one cassette. Severiano Morales R.N., P.Binu./Annette Alvarado M.D. REPORT IMAGES AND SCANNED DOCUMENTS, IF INCLUDED, ONLY VIEWABLE IN PDF VERSION OF REPORT The performance characteristics of some immunohistochemical stains, fluorescence in-situ hybridization tests and immunophenotyping by flow cytometry cited in this report (if any) were determined by the Surgical Pathology Department at [facility] as part of an ongoing senior quality manager program and in compliance with federally mandated regulations drawn from the Clinical Laboratory Improvement Act of 1988 (CLIA '88). Some of these tests rely on the use of analyte specific reagents and are subject to specific labeling requirements by the US Food and Drug Administration. Such diagnostic tests may only be performed in a facility that is certified by the Department of Health and Human Services as a high complexity laboratory under CLIA '88. The FDA has determined that such clearance or approval is not necessary. This test is used for clinical purposes. It should not be regarded as investigational or for research. Nevertheless, federal rules concerning the medical use of analyte specific reagents require that the following disclaimer be attached to the report: This test was developed and its performance characteristics determined by the Surgical Pathology Department [facility]. It has not been cleared or approved by the U. S. Food and Drug Administration. Note for decalcified specimens: This assay has not been validated on decalcified tissues. Results should be interpreted with caution given the possibility of false negativity on decalcified specimens Morro Vivar MD LAB PATHOLOGY ORDERABLES F inal Result PATHOLOGY [facility] [address] [place], [place] [id number] * Colonoscopy (01/11/2025 10:34 AM CDT) Anatomical Region Laterality Modality Other Narrative Procedure Note Morro Vivar MD - 01/11/2025 10:34 AM CDT [facility] Patient Name: Mauri Browning Procedure Date: 01/11/2025 10:34 AM Date of : 1970 Admit Type: Outpatient Age: 54 Gender: Female Attending MD: Morro Vivar M.D. Room: [facility] ENDOSCOPY ROOM 1 Note Status: Finalized Patient Profile: This is a 54 year old female. h/o adenoma polyps. Procedure: Colonoscopy Indications: Surveillance: Personal history of adenomatouspolyps on last colonoscopy 3 years ago, Last colonoscopy: March 2022 Referring MD: Kwaku Charles M.D. Providers: Morro Vivar M.D. Impression: - Two small 3 mm polyps in the descending colon, removed with a jumbo cold forceps. Resected and retrieved. - Internal hemorrhoids. Recommendation: - Await pathology results. - Repeat colonoscopy in 5 years for surveillance. - Continue present medications. Medicines: Monitored Anesthesia Care Complications: No immediate complications. Estimated Blood Loss: Estimated blood loss: none. Procedure: Pre-Anesthesia Assessment: - Prior to the procedure, a History and Physicalwas performed, and patient medications and allergieswere reviewed. The patient's tolerance of previous anesthesia was also reviewed. The risks andbenefits of the procedure and the sedation options and risks were discussed with the patient. All questions were answered, and informed consent was obtained. Prior Anticoagulants: The patient has taken noanticoagulant or antiplatelet agents. ASA Grade Assessment: Per anesthesia note and evaluation. After reviewing the risks and benefits, the patient was deemed in satisfactory condition to undergo the procedure. The benefits, risks and alternatives of theprocedure and sedation were discussed and informed consentwas obtained. All questions were answered. Please referto the signed informed consent document in the medical record. The bowel preparation used was Miralax via extended prep with split dose instruction. Thebowel preparation used was bisacodyl tablets via extended prep with split dose instruction. The scope waspassed under direct vision. The Pediatric Colonoscope PCF-H190L [id number] was introduced through the anus and advanced to the the cecum, identified by appendiceal orifice and ileocecal valve. Thequality of the bowel preparation was good. Bowel prep was administered using a split dose. Findings: The perianal and digital rectal examinations were normal. The cecum appeared normal. The rectum, sigmoid colon, ascending colon and cecum appearednormal. Two semi-sessile polyps were found in the descending colon. Thepolyps were 3 mm in size. These polyps were removed with a jumbo coldforceps. Resection and retrieval were complete. Internal hemorrhoids were found during retroflexion. The hemorrhoids were small. Electronically signed by Morro Vivar M.D. Morro Vivar M.D. 01/11/2025 12:09:13 PM Number of Addenda: 0 Note Initiated On: 01/11/2025 10:34 AM Procedure Code(s): --- Professional --- 32033, Colonoscopy, flexible; with biopsy, single or multiple Diagnosis Code(s): --- Professional --- Z86.010, Personal history of colonic polyps K64.8, Other hemorrhoids D12.4, Benign neoplasm of descending colon CPT copyright 2020 [employer]. All rights reserved. The codes documented in this report are preliminary and upon stacker attendant reviewmay be revised to meet current compliance requirements. Recognized by the [employer] for promoting quality in endoscopy Morro Vivar MD ENDOSCOPY PROCEDURES Final Result * Screening Mammogram Bilateral W Greg (04/15/2024 1:27 PM CDT) Anatomical Region Laterality Modality Breast Bilateral Mammography 04/15/2024 1:39 PM CDT Impressions 04/15/2024 1:39 PM CDT There is no mammographic evidence of malignancy. A 1 year screening mammogram is recommended. BI-RADS: 1 - Negative. The patient has been or will be contacted. The patient will be entered into a reminder system with a target due date of 1 year for her next mammogram. Electronically signed by: Aviva Montoya M.D. Narrative 04/15/2024 1:39 PM CDT EXAMINATION: SCREENING MAMMOGRAM BILATERAL W GREG ORDERING HEALTHCARE PROVIDER: SELF SCREENING MAMMOGRAM HISTORY: Routine screening mammography. COMPARISON: 04/20/2023, 02/22/2022, 12/31/2020, 11/15/2018 TECHNIQUE: CC and MLO views of the bilateral breasts were obtained with digital technique using breast tomosynthesis with C view. Computer aided detection was utilized. FINDINGS: DENSITY: There are scattered fibroglandular elements in the bilateral breasts. BREASTS: There are no suspicious masses, suspicious calcifications, or other suspicious findings in either breast. There has been no suspicious interval change. us Self Screening Mammogram IMG MAMMO PROCEDURES Fi nal Result * Hepatitis panel, acute (06/15/2022 9:52 AM CDT) Hep A IgM Nonreactive Nonreactive CERNER Comment: Interpretive Data: If Hep A IgM Ab is reported as Equivocal, a new sample should be drawn in two weeks for testing. Current interpretive data was last revised on 19. Hep B core IgM Nonreactive Nonreactive CERNER Comment: Interpretive Data If HepB Core IgM Ab is reported as Equivocal, a new sample should be drawn in two weeks for testing. Current interpretive data was last revised on 19. Hep C Ab Nonreactive Nonreactive CERNER Comment: Interpretive Data Nonreactive: Antibodies to HCV not detected. Does NOT exclude the possibility of recent exposure to HCV. Equivocal: Equivocal for HCV antibodies. Supplemental molecular testing will be automatically performed to determine infection status in accordance with current CDC screening recommendations. Reactive: Positive for HCV antibodies. This may represent current or past HCV infection. Supplemental molecular testing will be automatically performed to determine current infection status in accordance with current CDC screening recommendations. Interpretive data was last revised on 2019. HepBsAg Nonreactive Nonreactive [facility] Blood 06/15/2022 9:52 AM CDT 06/15/2022 10:20 AM CDT us Michelle Garcia MD LAB MICROBIOLOGY - GENERAL OR DERABLES Final Result Performing Organization Address City/State/[facility] Co de Phone Number [facility] [address] Department [place] [address] * Pap with reflex to High Risk HPV (11/23/2021 11:33 AM CDT) Pap test 11/23/2021 11:3 3 AM CDT 11/23/2021 11:33 AM CDT Narrative 11/27/2021 4:06 PM CDT [facility] Department of Pathology [address] [place] [address] Final Report Note to Patients: This report may contain a detailed description of human tissue sent by a health care provider to the laboratory for pathologic evaluation. The content of this report is essential for diagnosis and may provide important critical findings. This information may be unfamiliar to patients to review without a medical professional present. It is advised that the patient review this report in the presence of a health care provider who can answer questions and explain the details. Patient Name: MAURI BROWNING Address: [address] [place] [address] Gender: F : 1970 (Age: 50) Service: Radiology Location: RAD Hospital #: [id number] Patient Type: [facility] ANCILLARY Taken: 11/23/2021 Received: 11/23/2021 Accessioned:: 11/24/2021 Reported: 11/27/2021 Physician(s): Dr. Loulou Guerrero M.D. Dr. Loulou Guerrero M.D. 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 It should not be the sole means by which malignant and premalignant lesions are diagnosed. Both false negative and false positive results may occur. It also has poor sensitivity for the detection of endometrial lesions and should not be used to evaluate suspected endometrial abnormalities. For these reasons it is most important to obtain Pap tests at regular intervals. The performance characteristics of some immunohistochemical stains, fluorescence in-situ hybridization tests and immunophenotyping by flow cytometry cited in this report (if any) were determined by the Surgical Pathology Department at [facility] as part of an ongoing senior quality manager program and in compliance with federally mandated regulations drawn from the Clinical Laboratory Improvement Act of 1988 (CLIA '88). Some of these tests rely on the use of analyte specific reagents and are subject to specific labeling requirements by the US Food and Drug Administration. Such diagnostic tests may only be performed in a facility that is certified by the Department of Health and Human Services as a high complexity laboratory under CLIA '88. The FDA has determined that such clearance or approval is not necessary. This test is used for clinical purposes. It should not be regarded as investigational or for research. Nevertheless, federal rules concerning the medical use of analyte specific reagents require that the following disclaimer be attached to the report: This test was developed and its performance characteristics determined by the Surgical Pathology Department [facility]. It has not been cleared or approved by the U. S. Food and Drug Administration. Pedro Luis Guerrero MD LAB CYTOLOGY ORDERABLE S Final Result from Last 3 Months or Most Recently Relevant to Health Maintenance Insurance [employer] Address: [facility] [id number] [place] [address] [employer] Address: [facility] [id number] [place] [address] [employer] Address: [facility] [id number] [place] [address] [employer] Address: [facility] [id number] [place] [id number] [facility] [employer] Address: [facility] [id number] [place] [address] Advance Directives For more information, please contact: [phone] * Full Code (Latest Code Status on File) Date Activated Date Inactivated Comments 01/11/2025 10:24 AM 01/11/2025 5:46 PM * Full Code Date Activated Date Inactivated Comments 01/11/2025 10:24 AM 01/11/2025 10:24 AM * Full Code Date Activated Date Inactivated Comments 06/17/2022 7:26 PM 06/20/2022 2:02 PM * Full Code Date Activated Date Inactivated Comments 06/14/2022 8:04 PM 06/17/2022 7:26 PM * Full Code Date Activated Date Inactivated Comments 03/26/2022 7:48 AM 03/26/2022 2:03 PM Care Teams Loan Servicing Officer Relationship Specialty Start Date End Date Kwaku Charles MD [address] [place] [address] PCP - General Family Practice 10/20/24 Neno Corea MD Consulting Physician Gastroenterology 06/17/22 Foster Kwan MD Consulting Physician Interventional Cardiology 06/17/22 [place] [address] [place] [address] Surgeon General Surgery 06/19/22
--- OUTSIDE RECORDS SUMMARY | 2025-03-29 17:08 | XMS_ITS | Encounter Summary ---
Author Organization [facility] Healthcare Address [address] [place] [address] Care Team Providers Care Braille Proofreader Name Role Phone Neno Corea MD Unavailable Foster Kwan MD Unavailable [phone] Remberto Ovalles MD Unavailable [phone] Kwaku Charles MD Primary Care [facility] Encounter Details Date Type Department Care Team (Latest Contact Info) Description 01/28/2025 Results Follow-Up [facility] Gastroenterology at [address] [place] [address] Morro Vivar MD [address] [place] [address] [address] [place] [address] Surgical pathology Social History Tobacco Use Types Packs/Day Years Used Date Smoking Tobacco: Former Cigarettes 0.5 20 0 12/08/1990 - 12/08/2010 Smokeless Tobacco: Former Alcohol Use Standard [...] on file Legal Sex Female 7:17 PM 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 Gender Identity Female 10/30/2023 2:03 AM 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 Sexual Orientation Straight 08/03/2019 2: 20 PM 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 Not on file Not on f ile documented as of this encounter Plan of Treatment Not on file documented as of this encounter Visit Diagnoses Not on filedocumented in this encounter Care Teams Braille Proofreader Relationship Specialty Start Date End Date Kwaku Charles MD [address] [place] [address] PCP - General Family Practice 10/20/24 Neno Corea MD Consulting Physician Gastroenterology 06/17/22 Foster Kwan MD Consulting Physician Interventional Cardiology 06/17/22 [place] [address] [address] [place] [address] Surgeon General Surgery 06/19/22 documented as of this encounter
--- OUTSIDE RECORDS SUMMARY | 2025-03-29 17:08 | XMS_ITS | Referral Summary ---
Author Organization [facility] Address [address] [place] [address] Care Team Providers Care Biology Instructor Name Role Phone Neno Corea MD Unavailable Foster Kwan MD Unavailable [phone] Remberto Ovalles MD Unavailable [phone] Kwaku Charles MD Primary Care Provi daija Encounters Date Type Department Care Team Description 02/05/2025 Telephone [facility] Gastroenterology at [address] [place] [phone] Lionel Armando MA 01/28/2025 Results Follow-Up [facility] Gastroenterology at [address] [place] [phone] Morro Vivar MD Surgical pathology 01/11/2025 11:40 AM CDT Anesthesia Event [address] [address] Mei Wilson MD 01/11/2025 11:30 AM CDT - 01/11/2025 12:00 PM CDT Surgery [address] [address] Morro Vivar MD COLON BIOPSY 01/11/2025 10:19 AM CDT - 01/11/2025 12:45 PM CDT Hospital Encounter [facility] [address] [place] [address] Morro Vivar MD Screening for colon cancer Discharge Disposition: Discharge to home or self care from Last 3 Months Allergies Active Allergy Reactions Criticality Noted Date [...] 06/15/2021 Assessment & Plan (08/09/2022 4:14 PM UMBRELLA MENDER): Bannerfarshad NABIL pAmilcarrAmilcarnAmilcar Assessment & Plan (08/12/2021 9:58 PM UMBRELLA MENDER): Trial of Imitrex. Stress reduction techniques recommended. Call back if no improvement. Right renal stone 06/22/2020 Overview (06/22/2020): Added automatically from request for surgery [id number] IFG (impaired fasting glucose) 10/06/2018 Assessment & [...] yearly. Assessment & Plan (10/13/2019 5:12 PM UMBRELLA MENDER): Patient should reduce sugar and carbs, increase exercise, maintain proper body weight, and will check an A1c once or twice yearly. 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 Assessment & Plan (02/16/2019 7:24 PM CDT): Patient should reduce sugar and carbs, increase exercise, maintain proper body weight, and will check an A1c once or twice yearly. Assessment & Plan (10/06/2018 5:03 PM UMBRELLA MENDER): Patient should reduce sugar and carbs, increase exercise, maintain proper body weight, and will check an A1c once or twice yearly. Adult ADHD 08/06/2018 Assessment & Plan (12/06/2023 4:21 PM CDT): Continue Strattera Assessment & Plan (02/22/2023 3:30 PM CDT): Stable on Strattera. Assessment & Plan (08/09/2022 4:14 PM UMBRELLA MENDER): Stable on Strattera Assessment & Plan (01/06/2022 9:28 PM CDT): Stable on Strattera. Assessment & Plan (11/14/2020 9:29 PM CDT): Stable on Strattera for now. Assessment & Plan (10/13/2019 5:12 PM UMBRELLA MENDER): Well controlled on her Strattera. Assessment & Plan (09/07/2019 10:38 AM UMBRELLA MENDER): Increasing Strattera to 16 mg capsules daily. S/Es medication discussed. F/U here for next wellness visit as scheduled re-evaluation. Assessment & Plan (02/16/2019 7:25 PM CDT): Stable on Strattera. Assessment & Plan (10/06/2018 5:02 PM UMBRELLA MENDER): Well controlled on Strattera. Assessment & Plan (09/02/2018 1:36 PM UMBRELLA MENDER): Improved medication. Continue current dosing of Strattera as previously prescribed, follow-up in 1 month as scheduled Assessment & Plan (08/06/2018 10:28 AM UMBRELLA MENDER): Based upon self report scale indicating presence [...] daily. Assessment & Plan (08/12/2021 9:58 PM UMBRELLA MENDER): Increase sertraline to 100 mg daily. Counseling and increase exercise recommended. Call back if no improvement. Assessment & Plan (11/14/2020 9:28 PM CDT): Stable on sertraline. Assessment & Plan (10/13/2019 5:12 PM UMBRELLA MENDER): Well controlled on sertraline and may wean down if able. Assessment & Plan (09/07/2019 10:38 AM UMBRELLA MENDER): Stable on current dosing of Zoloft and [...] well. Assessment & Plan (10/06/2018 5:02 PM UMBRELLA MENDER): Hold buspirone. Start sertraline. Discussed side effects and call back if any develop. Call back if no improvement in 1 month for increasing dose. Assessment & Plan (09/02/2018 1:36 PM UMBRELLA MENDER): Controlled well considering medication changes with Strattera. She notes less anxiety due to improved concentration. Continue use of BuSpar on a p.r.n. Basis and follow-up with any concern regarding anxiety or depression Assessment & Plan (08/06/2018 10:22 AM UMBRELLA MENDER): Tapering off of patient's Lexapro taking half [...] to pharmacy upon prescribing. Side effects discussed. Edwardo jimenez. Follow-up in a month and certainly in [...] review. Assessment & Plan (10/24/2018 10:06 AM UMBRELLA MENDER): She was diagnosed with mild obstructive sleep [...] Colonoscopy due in 2 years. Follow-up the torch heater as they direct. Will see her back in 1 year for wellness visit fasting lab sooner needed. Assessment & Plan (01/06/2022 9:30 PM CDT): Flu shot each May. Tetanus booster every 10 years. COVID vaccine completed. Mammogram yearly. Follow-up the torch heater for breast exam and pelvic exam as they direct. Colonoscopy due and ordered. Will see her back in 1 year for physical fasting lab sooner if needed Assessment & Plan (11/14/2020 9:29 PM CDT): Flu shot each May. Tetanus booster every 10 years. COVID vaccine completed. Mammogram yearly. Follow-up the torch heater for breast exam and pelvic exam as they direct. We will see her back in 1 year for physical and fasting lab sooner if needed. Assessment & Plan (10/13/2019 5:13 PM UMBRELLA MENDER): Flu shot each May. Tetanus booster every 10 years. Mammogram yearly. Follow- up with the torch heater for breast exam and pelvic exam as they direct. Will see her back in 1 year for physical and fasting lab sooner if needed. Assessment & Plan (10/06/2018 5:03 PM UMBRELLA MENDER): Flu shot each May. Tetanus booster every 10 years. FIT for colon cancer screening call back for results. Mammogram yearly. Follow-up the torch heater for breast exam and pelvic exam is a direct. We will see her back in 3 months for follow-up of her multiple medical conditions or sooner if needed. Assessment & Plan (01/12/2018 3:52 PM CDT): Flu shot each May. Tetanus booster every 10 years. Colonoscopy age 51. Mammogram yearly. Follow-up the torch heater for breast exam and pelvic exam is [...] year. Assessment & Plan (10/13/2019 5:11 PM UMBRELLA MENDER): Continue current supplementation and check level in 1 year. Assessment & Plan (02/16/2019 7:23 PM CDT): Continue current supplementation and check level in 1 year. Assessment & Plan (10/06/2018 5:02 PM UMBRELLA MENDER): Reduce vitamin-D to 1000 units daily and [...] pantoprazole Assessment & Plan (10/13/2019 5:12 PM UMBRELLA MENDER): Try decreasing her PPI to every other day and then discontinue if able. Assessment & Plan (02/16/2019 7:24 PM CDT): Continue current PPI and the patient is aware of the long-term risks posed by chronic PPI usage. Magnesium level will be checked periodically. Calcium supplementation recommended. Assessment & Plan (10/06/2018 5:02 PM UMBRELLA MENDER): Continue current PPI and the patient is [...] exercise. Assessment & Plan (10/13/2019 5:11 PM UMBRELLA MENDER): Low risk for ASCVD and therefore recommend diet exercise. Osteoarthritis of knee 02/01/2016 Overview (11/30/2016): OA - Osteoarthritis of knee Atopic rhinitis 04/08/2015 Overview (11/30/2016): Allergic rhinitis Assessment & Plan (04/02/2024 5:28 PM CDT): Astelin /Zyrtec as needed. Assessment & Plan (10/13/2019 5:12 PM UMBRELLA MENDER): Okay to try holding her Astelin and Zyrtec and restart as needed. Assessment & Plan (10/06/2018 5:01 PM UMBRELLA MENDER): Add Astelin nasal spray to her fluticasone [...] 07/20/2024 Assessment & Plan (08/09/2022 4:15 PM UMBRELLA MENDER): Scheduled for stress test and echocardiogram with her ticket manager Chest pain, unspecified type 06/14/2022 04/02/2024 Elevated LFTs 06/14/2022 07/20/2024 Overview (06/18/2022): Added automatically from request for surgery [id number] Cholelithiasis with choledocholithiasis 06/14/2022 04/02/2024 Overview (06/18/2022): Added automatically from request for surgery [id number] Assessment & Plan (08/09/2022 4:15 PM UMBRELLA MENDER): She has done very well following surgery. [...] of exercise, refer to Dr. Underwood pulmonology thai levaquin 500mg daily x 10 days, no leftovers Recommend daily probiotic to help prevent GI side effects Promethazine syrup at bedtime Kj lester during the day Prediabetes 11/06/2021 04/02/2024 Assessment & Plan (05/23/2022 4:49 PM CDT): A1c ordered today-5.6% great control PCV20 given today Pt had diabetic eye exam at [facility]. We will call to obtain. Assessment & [...] No history of macrovascular disease - CVA, [place]. Vomiting without nausea 02/03/202106/27 Renal calculus, right 07/09/20202023 Overview (07/09/2020): Added automatically from request for surgery [id number] Right flank pain 06/22/2020 04/02/2024 Overview (06/22/2020): Added automatically from request for surgery [id number] Viral gastroenteritis 01/22/20202020 Assessment & Plan (01/22/2020 1:52 PM CDT): Push plenty of fluids. Zofran for nausea. Imodium for diarrhea. Hutchinson diet. If she develops high fever or [...] of 37.0 to 37.9 in adult 10/06/2018 5 Assessment & Plan (05/23/2022 4:46 PM CDT): HPI: Condition is not at/near goal goal BMI <30 A&P: Healthy, high-protein, lower carbohydrate, lower fat lifestyle and exercise for 150min/week recommended Recommend tracking everything you put in your mouth on an yudi like [employer] Lower carb substitutions: [employer] carries a zero net carb bread If [...] in much longer they will become mushy [place] and/or coconut flour instead of regular flour [...] pork rinds For yogurt, try Two Good indonesian yogurt Use Pinterest for recipe ideas. Type in low carb... [...] obesity. Assessment & Plan (10/06/2018 5:03 PM UMBRELLA MENDER): Patient is encouraged to lose weight with a combination of caloric reduction and increased exercise. Various strategies discussed. The long-term risks associated with continued morbid obesity discussed. Acute bronchitis due to othe r specified organisms 08/06/2018 09/02/2018 Assessment & Plan (09/02/2018 1:25 PM UMBRELLA MENDER): Asymptomatic at this time. Patient was encouraged to f/u with as indicated Assessment & Plan (08/06/2018 10:21 AM UMBRELLA MENDER): Tapering corticosteroids, use of Z-Familia, certainly ProAir [...] PFT. Assessment & Plan (10/06/2018 5:02 PM UMBRELLA MENDER): Continue Spiriva and follow up with Dr. Quach as he directs. Assessment & Plan (08/06/2018 10:21 AM UMBRELLA MENDER): Small airway disease including uses Spiriva, Singulair, [...] 10/06/2018 Assessment & Plan (09/02/2018 1:35 PM UMBRELLA MENDER): Continue with current management as advised by crime scene photographer including use of Singulair, Flonase, Spiriva, ProAir [...] detail. Assessment & Plan (08/06/2018 10:20 AM UMBRELLA MENDER): Recommended patient to continue to increase heart [...] cause of hypersomnia, frequent nocturnal awakenings, and machine shop instructor headaches as seems suggestive of sleep apnea [...] Assessment & Plan (06/28/2017 11:46 AM CDT): whipped topping mixer headaches are likely due to sleep apnea [...] needed. Assessment & Plan (07/12/2017 3:21 PM UMBRELLA MENDER): Stable. Continue on Breo along with use of ProAir p.r.n.. Certainly will await for the results of the nocturnal study in order for further management if indicated and need for oxygenation use at night and/or CPAP device Recurrent major depressive disorder 02/01/2016 06/11/2018 Overview (10/04/2017): Assessment & Plan (01/12/2018 3:48 PM CDT): Stable on venlafaxine. 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 Not on file Not on f ile Last Filed Vital Signs Vital Sign Reading [...] 01/11/2025 10:34 AM CDT Plan of Treatment Not on file Medical Devices Explanted Type Area Crew Supervisor Device Identifier Shelf Expiration Date Model / Serial / Lot [employer] [id number] Inlay [place] 6fr 24cm Pusher Fluoro Marker Atraumatic Insertion Latex Free - [id number] Implanted:Qty: 1 on 07/08/2020 by Preston Holley DO at [facility] Explanted:Qty: 1 on 09/02/2020 by Preston Holley DO at [facility] Right: Ureter [employer] 01/15/2024 [id number] / / [id number] [employer] [id number] Inlay [place] 6fr 24cm Pusher Fluoro Marker Atraumatic Insertion Latex Free - [id number] Implanted:Qty: 1 on 09/02/2020 by Preston Holley DO at [facility] Explanted:Qty: 1 on 09/06/2020 by Referral, Self Right: Ureter [employer] [id number] 01/15/2024 [id number] / / [id number] Procedures Procedure Name Priority Date/Time Associated Diagnosis [...] CDT Narrative PATHOLOGY [facility] - 01/13/2025 10:21 AM CDT EPIC results best viewed via link to PDF [facility] Department of Pathology [address] [place] [address] Note to Patients: This report may contain [...] Final Report Patient Name: MAURI BROWNING Address: [address] [place] [address] Gender: F : 1970 (Age: 54) Service: Gastro Location: [facility] Hospital #: [id number] Patient Type: [facility] Taken: 01/11/2025 Received: 01/12/2025 Accessioned: 01/12/2025 [...] a single formalin filled container labeled MAURI BROWNING and descending colon polyp x2. It is 3 fragments of lema tissue between 2 and 4 mm. All in one cassette. Severiano Morales R.N., P.Jeannette./Annette Alvarado M.D. REPORT IMAGES AND SCANNED DOCUMENTS, IF INCLUDED, ONLY VIEWABLE IN PDF VERSION OF REPORT The performance characteristics of some immunohistochemical stains, fluorescence in-situ hybridization tests and immunophenotyping by flow cytometry cited in this report (if any) were determined by the Surgical Pathology Department at [facility] as part of an ongoing senior quality analyst program and in compliance with federally mandated [...] characteristics determined by the Surgical Pathology Department [facility]. It has not been cleared or approved by the U. S. Food and Drug Administration. Note for decalcified specimens: This assay has not been validated on decalcified tissues. Results should be interpreted with caution given the possibility of false negativity on decalcified specimens Morro Vivar MD LAB PATHOLOGY ORDERABLES F inal Result Performing Organization Address City/State/[facility] Co de Phone Number PATHOLOGY [address] [phone] * Colonoscopy (01/11/2025 10:34 AM CDT) Anatomical Region Laterality Modality Other Narrative Procedure Note Morro Vivar MD - 01/11/2025 10:34 AM CDT [facility] Patient Name: Mauri Browning Procedure Date: [...] Referring MD: Kwaku Charles M.D. Providers: Morro Vviar M.D. Impression: - Two small 3 mm [...] under direct vision. The Pediatric Colonoscope [id number] was introduced through the anus and advanced [...] 10:34 AM Procedure Code(s): --- Professional --- 95674, Colonoscopy, flexible; with biopsy, single or multiple Diagnosis Code(s): --- Professional --- Z86.010, Personal history of colonic polyps K64.8, Other hemorrhoids D12.4, Benign neoplasm of descending colon CPT copyright 2020 [employer]. All rights reserved. The codes documented in this report are preliminary and upon banbury operator reviewmay be revised to meet current compliance requirements. Recognized by the [employer] for promoting quality in endoscopy us Morro Vivar MD ENDOSCOPY PROCEDURES Final Result [...] AM CDT) Hep A IgM Nonreactive Nonreactive [facility] Comment: Interpretive Data: If Hep A IgM Ab is reported as Equivocal, a new sample should be drawn in two weeks for testing. Current interpretive data was last revised on 19. Hep B core IgM Nonreactive Nonreactive [facility] Comment: Interpretive Data If HepB Core IgM Ab is reported as Equivocal, a new sample should be drawn in two weeks for testing. Current interpretive data was last revised on 19. Hep C Ab Nonreactive Nonreactive [facility] Comment: Interpretive Data Nonreactive: Antibodies to HCV [...] last revised on 2019. HepBsAg Nonreactive Nonreactive [facility] Blood 06/15/2022 9:52 AM CDT 06/15/2022 10:20 AM CDT us Michelle Garcia MD LAB MICROBIOLOGY - GENERAL OR DERABLES Final Result [facility] [address] Department [place] [address] * Pap with reflex to High Risk HPV (11/23/2021 11:33 AM CDT) Pap test 11/23/2021 11:3 3 AM CDT 11/23/2021 11:33 AM CDT Narrative 11/27/2021 4:06 PM CDT [facility] Department of Pathology [address] [place] [address] Final Report Note to Patients: This report [...] the details. Patient Name: MAURI BROWNING Address: [address] [place] [address] Gender: F : 1970 (Age: 50) Service: Radiology Location: [facility] #: [id number] Patient Type: [facility] EP ANCILLARY Taken: 11/23/2021 Received: 11/23/2021 Accessioned:: 11/24/2021 Reported: 11/27/2021 Physician(s): Dr. Loulou Guerrero M.D. Dr. Loulou Guerrero M.D. Diagnosis: Source of Specimen: Imaged Thinprep Pap Test w/ Reflex HPV - Assisted Living Executive Director Cytologic Material Specimen Adequacy: - Satisfactory for evaluation; endocervical/transformation zone component present General Category: - Negative for intraepithelial lesion or malignancy PERLA Wall(ASCP) Report Electronically Reviewed and Signed Out By PERLA Wall(ASCP) 11/27/2021 16:06:52 Specimen(s) Received: A: Imaged Thinprep Pap Test w/ Reflex HPV - Assisted Living Executive Director Cytologic Material Clinical History: The Pap test [...] determined by the Surgical Pathology Department at [facility] as part of an ongoing senior quality analyst program and in compliance with federally mandated [...] characteristics determined by the Surgical Pathology Department [facility]. It has not been cleared or approved by the U. S. Food and Drug Administration. Pedro Luis Guerrero MD LAB CYTOLOGY ORDERABLE S Final Result from Last 3 Months or Most Recently Relevant to Health Maintenance Insurance [employer] Address: [facility] [address] [place] [address] [employer] Address: [address] [place] [address] [employer] Address: [facility] [address] [place] [address] [employer] [facility] Advance Directives For more information, please contact: [phone] * Full Code (Latest Code Status on [...] 7:48 AM 03/26/2022 2:03 PM Care Teams Biology Instructor Relationship Specialty Start Date End Date Armstrong, Christopher Shiv, MD [address] [place] [address] PCP - General Family Practice 10/20/24 Neno Corea MD Consulting Physician Gastroenterology 06/17/22 Foster Kwan MD Consulting Physician Interventional Cardiology 06/17/22 [place] [id number] [facility] [address] [place] [address] Surgeon General Surgery 06/19/22
[2025-03-29 17:14] VITALS: BP 142/77; PULSE 68; RESP 20; TEMP 36.7; O2SAT 100
== END 2025-03-29 17:30 | disposition home or self-care (01) ==
PROVIDERS: Emergency Provider Nurse Practitioner; PCP Family Medicine
DX: H92.02 Otalgia, left ear (principal); Z87.891 Personal history of nicotine dependence; F90.9 Attention-deficit hyperactivity disorder, unspecified type; F41.9 Anxiety disorder, unspecified; F32.A Depression, unspecified
CPT/HCPCS: 99213; G0463